=== PATIENT | male | born 1985 | race Caucasian/White ===

== ENCOUNTER 2017-12-29 11:32 | Observation (INO) | payer BC ==
[2017-12-29 13:27] LABS: Absolute Lymphocytes (CBC) 1.5 K/uL (0.7-4.9); Absolute Monocytes 0.9 K/uL (0.1-1.3); Absolute Neutrophil 5.5 K/uL (1.8-8.0); Basophils % 1.1 % (0-1.3); Eosinophils % 1.1 % (0-4.4); Hematocrit 46.6 % (39.6-49.0); Lymphocytes % 18.7 % (15.3-44.8); MCH 29.6 pg (27.0-35.0); MCV 91.2 fL (80-100); MPV 10.8 fL (7.6-11.3); Monocytes % 10.8 % (3.3-12.3); RBC Red Blood Cell Count 5.12 M/uL (4.33-5.43)
--- NOTE | 2017-12-29 13:34 | ER ---
Nurse's Notes [facility] Name: Joe Duncan Age: 32 yrs Sex: Male : 1985 Arrival Date: 12/29/2017 Time: 11:36 Bed 25 Private MD: Brandon Arellano T Diagnosis: Chest pain, unspecified;Essential (primary) hypertension Presentation: 12/29 11:43 Presenting complaint: Patient states: Tightness in chest with dizziness that started aj suddenly this AM. Transition of care: patient was not received from another setting of care. Onset of symptoms was December 29, 2017. Risk Assessment: Do you want to hurt yourself or someone else? Patient reports no desire to harm self or others. Initial Sepsis Screen: Does the patient meet any 2 criteria? No. Patient's initial sepsis screen is negative. Does the patient have a suspected source of infection? No. Patient's initial sepsis screen is negative. Care prior to arrival: Medication(s) given: ASA, 81 mg, x 1. 11:43 Method Of Arrival: Wheelchair aj 11:43 Acuity: PRADIP 3 aj Triage Assessment: 11:44 General: Appears in no apparent distress. comfortable, Behavior is calm, cooperative, aj appropriate for age. Pain: Complains of pain in chest. Neuro: Level of Consciousness is awake, alert, obeys commands, Oriented to person, place, time, situation, Appropriate for age. Cardiovascular: Reports chest pain, Capillary refill < 3 seconds in bilateral fingers Patient's skin is warm and dry. Respiratory: Airway is patent Respiratory effort is even, unlabored, Respiratory pattern is regular, symmetrical. Derm: Skin is intact, is healthy with good turgor, Skin is pink, warm \T\ dry. normal. Historical: - Allergies: 11:44 No Known Allergies; aj - Home Meds: 11:44 None [Active]; aj - PMHx: 11:44 None; aj - PSHx: 11:44 None; aj - Immunization history:: Adult Immunizations up to date. - Social history:: Smoking status: Patient uses tobacco products, chewing tobacco. - Ebola Screening: : Patient negative for fever greater than or equal to 101.5 degrees Fahrenheit, and additional compatible Ebola Virus Disease symptoms Patient denies exposure to infectious person Patient denies travel to an Ebola-affected area in the 21 days before illness onset No symptoms or risks identified at this time. - Family history:: not pertinent. Screenin:03 Abuse screen: Denies threats or abuse. Denies injuries from another. Nutritional iw screening: No deficits noted. Tuberculosis screening: No symptoms or risk factors identified. 14:29 Fall Risk None identified. tl3 Assessment: 13:01 General: Appears in no apparent distress. Behavior is calm, cooperative. Pain: iw Complains of pain in chest Pain radiates to left arm Pain currently is 0 out of 10 on a pain scale. Pain began 2 hours ago. Is continuous. Neuro: Level of Consciousness is awake, alert, obeys commands, Oriented to person, place, time, situation. Cardiovascular: Reports chest pain, shortness of breath, cp has resolved, pt is feeling better, more relaxed Capillary refill < 3 seconds in bilateral fingers Patient's skin is warm and dry. Respiratory: Respiratory effort is even, unlabored, Respiratory pattern is regular, symmetrical. GI: Abdomen is non-distended. Derm: Skin is pink, warm \T\ dry. normal. Musculoskeletal: Range of motion: intact in all extremities. 14:29 Reassessment: No changes from previously documented assessment. Patient and/or family tl3 updated on plan of care and expected duration. Pain level reassessed. Patient is alert, oriented x 3, equal unlabored respirations, skin warm/dry/pink. pt is resting quietly, hospitalist at bedside for assessment. 14:57 Reassessment: Patient appears in no apparent distress at this time. No changes from tl3 previously documented assessment. Patient and/or family updated on plan of care and expected duration. Pain level reassessed. Patient is alert, oriented x 3, equal unlabored respirations, skin warm/dry/pink. pt does not want to be admitted, MD notified awaiting. 16:20 Reassessment: Patient appears in no apparent distress at this time. No changes from tl3 previously documented assessment. Patient and/or family updated on plan of care and expected duration. Pain level reassessed. Patient is alert, oriented x 3, equal unlabored respirations, skin warm/dry/pink. pt has talked to his and to Dr Hutchins and has now decided to stay for his admission. Vital Signs: 11:44 BP 155 / 68; Pulse 81; Resp 16; Temp 98.8; Pulse Ox 100% on R/A; Weight 127.01 kg; aj Height 5 ft. 9 in. (175.26 cm); 14:29 BP 141 / 93; Pulse 72; Resp 18; Pulse Ox 99% ; tl3 15:52 BP 124 / 78; Pulse 64; Resp 16; Pulse Ox 99% on R/A; mt 16:20 BP 135 / 60; Pulse 69; Resp 18; Pulse Ox 98% ; tl3 16:38 BP 137 / 79; Pulse 61; Resp 18; Pulse Ox 99% on R/A; mt 11:44 Body Mass Index 41.35 (127.01 kg, 175.26 cm) aj ED Course: 11:36 Patient arrived in ED. mr 11:37 Brandon Arellano MD is Private Physician. mr 11:44 Triage completed. aj 11:44 Arm band placed on left wrist. Patient placed in waiting room. aj 11:46 EKG completed in triage. Results shown to MD. aj 13:02 Darren Hutchins MD is Attending Physician. bee 13:13 Initial lab(s) drawn, by ut, sent to lab. Missed attempt(s): 20 gauge in left mt antecubital area. 13:21 Katerine Finch, RN is Primary Nurse. tl3 13:23 X-ray completed. Portable x-ray completed in exam room. Patient tolerated procedure jb2 well. 13:23 XRAY Chest (1 view) In Process Unspecified. EDMS 13:31 Rhonda Caballero MD is Hospitalizing Provider. bee 14:29 Patient has correct armband on for positive identification. can intake worker on. Pulse tl3 ox on. NIBP on. 14:29 No provider procedures requiring assistance completed. Inserted saline lock: 20 gauge tl3 in right upper arm, using aseptic technique. Patient maintains SpO2 saturation greater than 95% on room air. 17:13 Patient admitted, IV remains in place. tl3 Administered Medications: 14:10 Drug: NS 0.9% 1000 ml Route: IV; Rate: 125 ml/hr; Site: right upper arm; tl3 17:14 Follow up: IV Status: Infusion continued upon admission tl3 14:10 Drug: Aspirin Chewable Tablet 324 mg Route: PO; tl3 16:22 Follow up: Response: No adverse reaction tl3 14:10 Drug: Lopressor (metoprolol TARTRATE) 50 mg Route: PO; tl3 16:22 Follow up: Response: No adverse reaction; Blood pressure is lowered tl3 14:10 Drug: Pepcid 20 mg Route: IVP; Site: right forearm; tl3 16:21 Follow up: Response: No adverse reaction tl3 17:10 Drug: Lovenox 1 mg/kg Route: Sub-Q; Site: abdomen; tl3 17:15 Follow up: Response: No adverse reaction tl3 Outcome: 13:33 Decision to Hospitalize by Provider. [facility] 17:13 Admitted to Tele accompanied by tech, via wheelchair, with chart, Report called to tl3 Lita Cummings RN 17:16 Condition: stable tl3 17:16 Patient left the ED. tl3 Signatures: Dispatcher [employer] Marion Wetzel RN RN aj Anderson, Corey, MD MD cha Rivera, Maria mr Charliekelly, Canelo jb2 Shanika Oates, Verónica Ruiz RN, mt, Tammy, RN RN tl3 Corrections: (The following items were deleted from the chart) 11:47 11:44 Arm band placed on left wrist. Patient placed in an exam room, [facility] 11:49 11:43 Care prior to arrival: None. [facility] 17:14 16:22 Lovenox 1 mg/kg Sub-Q in abdomen tl3 tl3
--- NOTE | 2017-12-29 13:34 | EDPHYS ---
Physician Documentation [facility] Name: Joe Duncan Age: 32 yrs Sex: Male : 1985 Arrival Date: 12/29/2017 Time: 11:36 Bed 25 Private MD: Brandon Arellano T ED Physician Darren Hutchins HPI: 12/29 13:29 This 32 yrs old Male presents to ER via Wheelchair with complaints of Chest bee Pain. 13:29 The patient or guardian reports chest pain that is located primarily in the substernal bee area. The pain radiates to. Associated signs and symptoms: The patient has no apparent associated signs or symptoms. The chest pain is described as a heaviness, a pressure, squeezing. Modifying factors: The symptoms are alleviated by nothing. the symptoms are aggravated by nothing. Severity of pain: At its worst the pain was moderate in the emergency department the pain has improved moderately. The patient has not experienced similar symptoms in the past. Historical: - Allergies: 11:44 No Known Allergies; aj - Home Meds: 11:44 None [Active]; aj - PMHx: 11:44 None; aj - PSHx: 11:44 None; aj - Immunization history:: Adult Immunizations up to date. - Social history:: Smoking status: Patient uses tobacco products, chewing tobacco. - Ebola Screening: : Patient negative for fever greater than or equal to 101.5 degrees Fahrenheit, and additional compatible Ebola Virus Disease symptoms Patient denies exposure to infectious person Patient denies travel to an Ebola-affected area in the 21 days before illness onset No symptoms or risks identified at this time. - Family history:: not pertinent. ROS: 13:29 Constitutional: Negative for fever, chills, and weight loss, Eyes: Negative for injury, bee pain, redness, and discharge, ENT: Negative for injury, pain, and discharge, Neck: Negative for injury, pain, and swelling, Respiratory: Negative for shortness of breath, cough, wheezing, and pleuritic chest pain, Abdomen/GI: Negative for abdominal pain, nausea, vomiting, diarrhea, and constipation, Back: Negative for injury and pain, : Negative for injury, bleeding, discharge, and swelling, MS/Extremity: Negative for injury and deformity, Skin: Negative for injury, rash, and discoloration, Neuro: Negative for headache, weakness, numbness, tingling, and seizure, Psych: Negative for depression, anxiety, suicide ideation, homicidal ideation, and hallucinations, Allergy/Immunology: Negative for hives, rash, and allergies, Endocrine: Negative for neck swelling, polydipsia, polyuria, polyphagia, and marked weight changes, Hematologic/Lymphatic: Negative for swollen nodes, abnormal bleeding, and unusual bruising. 13:29 Cardiovascular: Positive for chest pain, of the chest. Exam: 13:29 Constitutional: This is a well developed, well nourished patient who is awake, alert, bee and in no acute distress. Head/Face: Normocephalic, atraumatic. Eyes: Pupils equal round and reactive to light, extra-ocular motions intact. Lids and lashes normal. Conjunctiva and sclera are non-icteric and not injected. Cornea within normal limits. Periorbital areas with no swelling, redness, or edema. ENT: Nares patent. No nasal discharge, no septal abnormalities noted. Tympanic membranes are normal and external auditory canals are clear. Oropharynx with no redness, swelling, or masses, exudates, or evidence of obstruction, uvula midline. Mucous membranes moist. Neck: Trachea midline, no thyromegaly or masses palpated, and no cervical lymphadenopathy. Supple, full range of motion without nuchal rigidity, or vertebral point tenderness. No Meningismus. Chest/axilla: Normal chest wall appearance and motion. Nontender with no deformity. No lesions are appreciated. Cardiovascular: Regular rate and rhythm with a normal S1 and S2. No gallops, murmurs, or rubs. Normal PMI, no JVD. No pulse deficits. Respiratory: Lungs have equal breath sounds bilaterally, clear to auscultation and percussion. No rales, rhonchi or wheezes noted. No increased work of breathing, no retractions or nasal flaring. Abdomen/GI: Soft, non-tender, with normal bowel sounds. No distension or tympany. No guarding or rebound. No evidence of tenderness throughout. Back: No spinal tenderness. No costovertebral tenderness. Full range of motion. Male : Normal genitalia with no discharge or lesions. Skin: Warm, dry with normal turgor. Normal color with no rashes, no lesions, and no evidence of cellulitis. MS/ Extremity: Pulses equal, no cyanosis. Neurovascular intact. Full, normal range of motion. Neuro: Awake and alert, GCS 15, oriented to person, place, time, and situation. Cranial nerves II-XII grossly intact. Motor strength 5/5 in all extremities. Sensory grossly intact. Cerebellar exam normal. Normal gait. Psych: Awake, alert, with orientation to person, place and time. Behavior, mood, and affect are within normal limits. 15:12 Musculoskeletal/extremity: DVT Exam: No signs of deep vein thrombosis. no pain, no bee swelling, no tenderness, negative Homans' sign noted on exam, no appreciated bluish discoloration, no erythema, no increased warmth. Vital Signs: 11:44 BP 155 / 68; Pulse 81; Resp 16; Temp 98.8; Pulse Ox 100% on R/A; Weight 127.01 kg; aj Height 5 ft. 9 in. (175.26 cm); 14:29 BP 141 / 93; Pulse 72; Resp 18; Pulse Ox 99% ; tl3 15:52 BP 124 / 78; Pulse 64; Resp 16; Pulse Ox 99% on R/A; mt 16:20 BP 135 / 60; Pulse 69; Resp 18; Pulse Ox 98% ; tl3 16:38 BP 137 / 79; Pulse 61; Resp 18; Pulse Ox 99% on R/A; mt 11:44 Body Mass Index 41.35 (127.01 kg, 175.26 cm) aj MDM: 13:02 Patient medically screened. [facility] 15:11 Data reviewed: lab test result(s), EKG, radiologic studies, plain films. [facility] 12/29 13:04 Order name: Basic Metabolic Panel; Complete Time: 15: 12/29 13:04 Order name: CBC with Diff; Complete Time: 15: 12/29 13:04 Order name: Ckmb; Complete Time: 15: 12/29 13:04 Order name: CPK; Complete Time: 15: 12/29 13:04 Order name: LFT's; Complete Time: 15: 12/29 13:04 Order name: Magnesium; Complete Time: 15: 12/29 13:04 Order name: NT PRO-BNP; Complete Time: 15: 12/29 13:04 Order name: PT-INR; Complete Time: 15: 12/29 13:04 Order name: Ptt, Activated; Complete Time: 15:07 12/29 13:04 Order name: Troponin (emerg Dept Use Only); Complete Time: 15:07 12/29 13:04 Order name: XRAY Chest (1 view); Complete Time: 15:07 12/29 13:28 Order name: Lipase; Complete Time: 15:07 [facility] 12/29 13:04 Order name: EKG; Complete Time: 13:04 12/29 13:04 Order name: Cardiac monitoring; Complete Time: 13:14 12/29 13:04 Order name: EKG - Nurse/Tech; Complete Time: 13:14 12/29 13:04 Order name: Labs collected and sent; Complete Time: 13:14 12/29 13:04 Order name: O2 Per Protocol; Complete Time: 13:14 12/29 13:04 Order name: O2 Sat Monitoring; Complete Time: 13:14 12/29 13:36 Order name: CONS Physician Consult EDMS Administered Medications: 14:10 Drug: NS 0.9% 1000 ml Route: IV; Rate: 125 ml/hr; Site: right upper arm; tl3 17:14 Follow up: IV Status: Infusion continued upon admission tl3 14:10 Drug: Aspirin Chewable Tablet 324 mg Route: PO; tl3 16:22 Follow up: Response: No adverse reaction tl3 14:10 Drug: Lopressor (metoprolol TARTRATE) 50 mg Route: PO; tl3 16:22 Follow up: Response: No adverse reaction; Blood pressure is lowered tl3 14:10 Drug: Pepcid 20 mg Route: IVP; Site: right forearm; tl3 16:21 Follow up: Response: No adverse reaction tl3 17:10 Drug: Lovenox 1 mg/kg Route: Sub-Q; Site: abdomen; tl3 17:15 Follow up: Response: No adverse reaction tl3 Disposition: 12/29/17 13:33 Hospitalization ordered by Rhonda Caballero for Observation. Preliminary diagnosis are Chest pain, unspecified, Essential (primary) hypertension. - Bed requested for Telemetry/MedSurg (observation). - Status is Observation. tl3 - Condition is Stable. - Problem is new. - Symptoms have improved. UTI on Admission? No Signatures: Dispatcher [employer] EDMS Marion Dhaliwal, RN Darren Nichols MD MD cha Williams, Irene, RN RN iw Katerine Finch RN RN tl3 Corrections: (The following items were deleted from the chart) 17:16 13:33 Hospitalization Ordered by Rhonda Caballero MD for Observation. Preliminary diagnosis tl3 is Chest pain, unspecified; Essential (primary) hypertension. Bed requested for Telemetry/MedSurg (observation). Status is Observation. Condition is Stable. Problem is new. Symptoms have improved. UTI on Admission? No. bee
[2017-12-29 13:36] LABS: Protime INR 0.97
[2017-12-29 13:43] LABS: Albumin 4.3 g/dL (3.4-5.0); Bilirubin Direct 0.1 mg/dL (0-0.2); Bilirubin Total 0.6 mg/dL (0.2-1.0); CKMB Creatine Kinase MB 1.3 ng/mL (0.3-3.6); Magnesium 2.4 mg/dL (1.8-2.4); Potassium 4.1 mmol/L (3.5-5.1); Protein, Total 8.2 g/dL (6.4-8.2)
[2017-12-29] MEDS ORDERED: METOPROLOL TAR 50 MG TAB ONE (13:47)
[2017-12-29] MEDS ORDERED: ASPIRIN 81 MG CHEWABLE TABLET ONE (13:47)
[2017-12-29] MEDS ORDERED: ENOXAPARIN 40 MG/0.4 ML SQ ONE (13:48)
[2017-12-29] MEDS ORDERED: ENOXAPARIN 100 MG/ML SYR SQ ONE ×2 (13:48→13:53)
[2017-12-29] MEDS ORDERED: NA CHLORIDE 0.9% 1,000 ML ONE (13:48)
[2017-12-29] MEDS ORDERED: FAMOTIDINE 20 MG/2 ML VIAL IV ONE (13:48)
[2017-12-29] MEDS ORDERED: ENOXAPARIN 30 MG/0.3 ML SQ ONE (13:54)
--- NOTE | 2017-12-29 14:05 | RAD REPORT ---
EXAM DESCRIPTION: RAD - Chest Single View - 12/29/2017 1:23 pm CLINICAL HISTORY: Chest pain, chest tightness COMPARISON: None. TECHNIQUE: AP portable chest image was obtained . FINDINGS: Lungs are clear. Heart size is upper normal. Pulmonary vascular within normal limits. Trac hea is midline. No measurable pleural effusion and no pneumothorax. No gross bony abnormality seen. N o acute aortic findings suspected. IMPRESSION: No acute cardiopulmonary process.
--- NOTE | 2017-12-29 14:57 | P.CNS ---
Date of Consult: 12/29/17 Called to see 32-year-old male with history of hypertension hyperlipidemia and nicotine dependence who is noncompliant coming in with chest pain which has since resolved. Patient states he had some elevated blood pressure at home systolic 180s. Patient has not been taking his medications for the past year and stop taking his cholesterol medications as well. Patient currently is asymptomatic however he understands that given his risk factors of hypertension hyperlipidemia obesity strong family history of coronary artery disease he needs to stay in the hospital however wishes to sign out against medical advice. I counseled him regarding leaving the hospital against medical advice and the risks associated with leaving AMA including worsening chest pain NC or even . He voiced understanding and does not wish to stay in the hospital. [facility]. I informed his nurse that the patient is requesting a form to sign out AMA
--- NOTE | 2017-12-29 16:54 | EKG ---
Test Date: 2017-12-29 Test Time: 11:51:43 Balloon Pilot: HELLEN MEASUREMENT RESULTS: Intervals: Rate: 79 NH: 152 QRSD: 92 QT: 366 QTc: 419 Timbo: P: 59 NH: 152 QRS: 15 T: 19 INTERPRETIVE STATEMENTS: Normal sinus rhythm Minimal voltage criteria for LVH, may be normal variant Borderline ECG No previous ECG available for comparison Electronically Signed On 12-29-17 16:53:11 CDT by Ector Randle
[2017-12-29] MEDS ORDERED: MORPHINE 4 MG/ML SYR IV PRN (17:13)
[2017-12-29] MEDS ORDERED: ACETAMINOPHEN 500 MG TAB PO PRN (17:13)
[2017-12-29] MEDS ORDERED: ALPRAZOLAM 0.25 MG TABLET PO PRN (17:13)
[2017-12-29] MEDS ORDERED: ZOLPIDEM TARTRATE 5 MG TABLET PO PRN (17:13)
--- NOTE | 2017-12-29 17:13 | P.SSS ---
Patient History Date of Service: 12/30/17 Primary Care Provider: FERDINAND Reason for admission: CHEST PAIN History of Present Illness: Called to see 32-year-old male with history of hypertension hyperlipidemia and nicotine dependence who is noncompliant coming in with chest pain which has since resolved. Patient states he had some elevated blood pressure at home systolic 180s. Patient has not been taking his medications for the past year and stop taking his cholesterol medications as well. Patient currently is asymptomatic however he understands that given his risk factors of hypertension hyperlipidemia obesity strong family history of coronary artery disease he needs to stay in the hospital however wishes to sign out against medical advice. I counseled him regarding leaving the hospital against medical advice and the risks associated with leaving AMA including worsening chest pain MT or even . He voiced understanding and does not wish to stay in the hospital. He states he will go to the [place] tomorrow and get back on his blood pressure medications. I informed his nurse that the patient is requesting a form to sign out AMA ADDENDUM: PATIENT DECIDED TO STAY IN THE HOSPITAL and was admitted Allergies No Known Allergies Allergy (Verified 12/29/17 17:21) Home medications list reviewed: Yes Home Medications: Famotidine [Pepcid*] 1 tab PO DAILY 12/29/17 Fenofibrate Nanocrystallized [Fenofibrate] 145 mg PO DAILY #30 tablet 12/30/17 Lisinopril [Prinivil*] 10 mg PO DAILY #30 tab 12/30/17 Metoprolol Tartrate [Lopressor*] 25 mg PO BID #60 tab 12/30/17 - Past Medical/Surgical History Diabetic: No -: Hypertension -: Hyperlipidemia Past Surgical History: Patient denies surgical history - Family History Father -: Heart disease Notes: Uncle had coronary disease Brother -: Hypertension - Social History Smoking Status: Current every day smoker Smoking therapy provided: Yes Patient receptive to therapy: Yes Alcohol use: No CD- Drugs: No Place of Residence: Home Review of Systems 10-point ROS is otherwise unremarkable Cardiovascular: As per HPI Physical Examination - Vital Signs Temperature: 97.1 F Blood Pressure: 126/81 Pulse: 51 Respirations: 18 Pulse Ox (%): 99 - Physical Exam General: Alert, In no apparent distress, Oriented x3, Obese HEENT: Atraumatic, PERRLA, Mucous membr. moist/pink, EOMI, Sclerae nonicteric Neck: Supple, 2+ carotid pulse no bruit, No LAD, Without JVD or thyroid abnormality Respiratory: Clear to auscultation bilaterally, Normal air movement Cardiovascular: No edema, Normal pulses, Regular rate/rhythm, Normal S1 S2 Gastrointestinal: Normal bowel sounds, Soft and benign, Non-distended, No tenderness Musculoskeletal: No clubbing, No tenderness Integumentary: No rashes, No erythema Neurological: Normal gait, Normal speech, Normal strength at 5/5 x4 extr, Normal tone, Cranial nerves 3-12 intact, Normal affect - Studies Laboratory Data (last 24 hrs) 12/29/17 13:12: Lipase 60 L 12/29/17 13:12: PT 11.4, INR 0.97, APTT 28.1 12/29/17 13:12: WBC 8.1, Hgb 15.1, Hct 46.6, Plt Count 187 12/29/17 13:12: Sodium 140, Potassium 4.1, BUN 20 H, Creatinine 1.10, Glucose 99 , Magnesium 2.4, Total Bilirubin 0.6, AST 32, ALT 64, Alkaline Phosphatase 63 Imagings Data: Chest x-ray negative - Diagnosis (Problem(s)) (1) Chest pain Onset Date: 12/30/17 Status: Acute Qualifiers: Chest pain type: precordial pain Qualified Code(s): R07.2 - Precordial pain (2) Hypertension Onset Date: 12/30/17 Status: Acute Qualifiers: Hypertension type: essential hypertension Qualified Code(s): I10 - Essential (primary) hypertension (3) Hyperlipidemia Onset Date: 12/30/17 Status: Acute Qualifiers: Hyperlipidemia type: unspecified Qualified Code(s): E78.5 - Hyperlipidemia , unspecified (4) Nicotine dependence Onset Date: 12/30/17 Status: Acute Qualifiers: Nicotine product type: cigarettes Substance use status: uncomplicated Qualified Code(s): F17.210 - Nicotine dependence, cigarettes, uncomplicated (5) Noncompliance Onset Date: 12/30/17 Status: Acute Treatment Summary: Patient admitted for Chest pain. ACS ruled out. HTN was uncontrolled. Meds adjusted. Cardiology was consulted. His echo and treadmill stress test were negative. Patient was then asymptomatic. He did complain of some anxiety. He was cleared for DC from cardiology standpoint. No smoking! counseled regarding compliance. 12/30/16 PE: VSS, afebrile GEN: AAOx3 CV: S1, S2 no murmur RESP: CTA b/l GI: BS+, NT/ND EXT: no c/c/e NEURO non focal - Disposition Disposition: ROUTINE DISCHARGE Condition: GOOD Consultations: Dr. Bella cardiology Patient Discharge Instructions: f/up w PCP in 2-3 days. f/up w spring tester Dr. Bella in 2 weeks. Return to ER for worsening condition Diet: AHA Activity: Ad bo
[2017-12-29 17:22] VITALS: BMI 34.0
[2017-12-29] MEDS ORDERED: NITROGLYCERIN 0.4 MG/TAB SL PRN (17:35)
[2017-12-29] MEDS: ENOXAPARIN 40 MG/0.4 ML SQ SCH (17:41)
[2017-12-29] MEDS: FAMOTIDINE 20 MG TAB PO SCH (20:29)
[2017-12-29] MEDS: METOPROLOL TAR 25 MG TAB PO SCH (20:30)
[2017-12-29] MEDS ORDERED: ATORVASTATIN 40 MG TAB PO SCH (21:00)
[2017-12-30 04:16] LABS: Absolute Lymphocytes (CBC) 2.5 K/uL (0.7-4.9); Absolute Monocytes 0.8 K/uL (0.1-1.3); Basophils % 1.2 % (0-1.3); Hematocrit 46.2 % (39.6-49.0); Lymphocytes % 38.1 % (15.3-44.8); MCH 30.1 pg (27.0-35.0); MCV 91.1 fL (80-100); MPV 10.7 fL (7.6-11.3); Monocytes % 11.8 % (3.3-12.3); RBC Red Blood Cell Count 5.07 M/uL (4.33-5.43)
[2017-12-30 04:31] LABS: BUN Blood Urea Nitrogen 19 mg/dL (7-18); Bicarbonate 24 mmol/L (21-32); Glucose Level 103 mg/dL (74-106); HDL Cholesterol 29 mg/dL (40-60); LDL Cholesterol, Calculated ND (<130); Potassium 4.4 mmol/L (3.5-5.1); Sodium Level 139 mmol/L (136-145)
[2017-12-30 04:59] LABS: LDL, Direct 156 mg/dL (100-129)
[2017-12-30 08:19] VITALS: BP 126/81; TEMP 97.1
[2017-12-30 08:35] VITALS: O2SAT 98
[2017-12-30] MEDS: METOPROLOL TAR 25 MG TAB PO SCH (09:00)
[2017-12-30] MEDS ORDERED: LISINOPRIL 10 MG TAB PO SCH (09:00)
[2017-12-30] MEDS ORDERED: ASPIRIN EC 81 MG TAB PO SCH (09:00)
[2017-12-30] MEDS: ENOXAPARIN 40 MG/0.4 ML SQ SCH (09:39)
[2017-12-30] MEDS: FAMOTIDINE 20 MG TAB PO SCH (09:40)
--- NOTE | 2017-12-30 12:39 | ECHO ---
HEIGHT: 5 ft 9 in WEIGHT: 230 lb 0 oz DATE OF STUDY: 12/30/[address]: Rhonda Caballero MD 2-DIMENSIONAL: YES M.MODE: YES DOPPLER: YES COLOR FLOW: YES TDS: NO PORTABLE: NO DEFINITY: NO BUBBLE STUDY: NO DIAGNOSIS: CHEST PAIN CARDIAC HISTORY: CATHERIZATION: NO SURGERY: NO PROSTHETIC VALVE: NO PACEMAKER: NO MEASUREMENTS (cm) DIASTOLIC (NORMALS) SYSTOLIC (NORMALS) IVSd 1.0 (0.6-1.2) LA Diam 3.7 (1.9-4.0) LVEF 64% LVIDd 5.5 (3.5-5.7) LVIDs 3.5 (2.0-3.5) %FS 35% LVPWd 1.0 (0.6-1.2) Ao Diam 2.5 (2.0-3.7) 2 DIMENSIONAL ASSESSMENT: RIGHT ATRIUM: NORMAL LEFT ATRIUM: NORMAL RIGHT VENTRICLE: NORMAL LEFT VENTRICLE: NORMAL TRICUSPID VALVE: NORMAL MITRAL VALVE: NORMAL PULMONIC VALVE: NORMAL AORTIC VALVE: NORMAL PERICARDIAL EFFUSION: NONE AORTIC ROOT: NORMAL LEFT VENTRICULAR WALL MOTION: NORMAL DOPPLER/COLOR FLOW: NORMAL COMMENTS: NORMAL 2D ECHOCARDIOGRAM WITH DOPPLER. NO WALL MOTION ABNORMALITY. NO EFFUSION. TECHNOLOGIST: Gil CANNON
--- NOTE | 2017-12-30 13:08 | TREADMILL ---
70% H.R.: 132 85% H.R.: 161 90% H.R.: 170 100% H.R.: 189 DX: CHEST PAIN Date of Study: 12/30/2017 Ht: 5 9 Wt: 230 lb 0 oz Consulting Physician: TRISTAN MEDICATIONS: TYLENOL, XANAX, ASPIRIN, LIP[ITOR, LOVENOX, PEPCID, PRINIVAL, LOPRESSOR, NITROSTAT, AMBIEN HISTORY: 32 YEAR OLD MALE WITH COMPLAINTS OF CHEST PAIN. HISTORY OF PSORIASIS. PHYSICIAL EXAMINATION: RESTING B.P.: 119/84 RESTING H.R.: 75 RESTING EKG: NORMAL PROTOCOL: MARCI ROUTINE EXERCISE TIME: 8:20 MAXIMUM HEART RATE: 134 71 % OF PREDICTED B.P. AT PEAK STRESS: 151/74 H.R. AT 1 MINUTE POST EXERCISE: 106 IMPRESSION: MARCI ROUTINE STRESS TEST STOPPED DUE TO FATIGUE AND CHEST PAIN PER PROTOCOL. NO SUPRAVENTRICULAR TACHYCARDIA. NO VENTRICULAR TACHYCARDIA. NO PREMATURE VENTRICULAR COMPLEXES. CHEST PAIN FOUR OUT OF TEN ON PAIN SCALE INTERMITTEN SHARP PAIN WITH SHORTNESS OF BREATH. NEGATIVE EXERCISE TOLERANCE TEST. NO ST CHANGES.
--- NOTE | 2017-12-30 13:41 | P.PN ---
Subjective Date of Service: 12/30/17 Primary Care Provider: FERDINAND Chief Complaint: CHEST PAIN Subjective: No C/O voiced Review of Systems 10-point ROS is otherwise unremarkable Physical Examination - Vital Signs Temperature: 97.1 F Blood Pressure: 126/81 Pulse: 51 Respirations: 18 Pulse Ox (%): 99 - Physical Exam General: Alert, In no apparent distress HEENT: Atraumatic, PERRLA, EOMI Neck: Supple, JVD not distended Respiratory: Clear to auscultation bilaterally, Normal air movement Cardiovascular: Regular rate/rhythm, Normal S1 S2 Gastrointestinal: Normal bowel sounds, No tenderness Musculoskeletal: No tenderness Integumentary: No rashes Neurological: Normal speech, Normal tone, Normal affect Lymphatics: No axilla or inguinal lymphadenopathy - Studies Laboratory Data (last 24 hrs) 12/29/17 13:12: Lipase 60 L 12/29/17 13:12: Sodium 140, Potassium 4.1, BUN 20 H, Creatinine 1.10, Glucose 99 , Magnesium 2.4, Total Bilirubin 0.6, AST 32, ALT 64, Alkaline Phosphatase 63 Medications List Reviewed: Yes Assessment And Plan - Current Problems (Diagnosis) (1) Chest pain Onset Date: 12/30/17 Status: Acute Qualifiers: Chest pain type: precordial pain Qualified Code(s): R07.2 - Precordial pain (2) Hypertension Onset Date: 12/30/17 Status: Acute Qualifiers: Hypertension type: essential hypertension Qualified Code(s): I10 - Essential (primary) hypertension (3) Hyperlipidemia Onset Date: 12/30/17 Status: Acute Qualifiers: Hyperlipidemia type: unspecified Qualified Code(s): E78.5 - Hyperlipidemia , unspecified (4) Nicotine dependence Onset Date: 12/30/17 Status: Acute Qualifiers: Nicotine product type: cigarettes Substance use status: uncomplicated Qualified Code(s): F17.210 - Nicotine dependence, cigarettes, uncomplicated (5) Noncompliance Onset Date: 12/30/17 Status: Acute - Plan DC home Discharge Plan: Home
--- NOTE | 2017-12-31 10:53 | CON ---
Date of Consultation: 12/30/2017 The patient was admitted to Dr. Caballero's service on 12/29/2017. I saw the patient on 12/30/2017. Reason For Consultation: Chest pain. History Of Present Illness: Mr. Gauthier is a [id number]. He has a history of hypertension and dy slipidemia, buy has been noncompliant with therapy. He is supposed to take a blood pressure pill and a cholesterol pill, but he has not really had taking any. He admitted to smoking and drinking. He normally goes to the [facility] for his care, but has not been recently. He came in with a sharp st abbing sensation in the left chest with headache located with numbness in his arm. Denied any nausea , vomiting, diaphoresis, PND, orthopnea, pedal edema, palpitations, or syncope. By the time he came in, he was noted to have a normal EKG and chest x-ray as well as troponin and CPKs and MBs. Of note was his triglyceride was 593. His cholesterol was 237 with an LDL of 156. Allergies: NONE. Review of Systems: Negative. Social History: Positive for alcohol and tobacco abuse. Family History: Noncontributory. Medications: At home are none for now. Physical Examination: Vital Signs: Were stable. He was afebrile. HEENT: Negative. Neck: Supple without any bruit, lymphadenopathy, JVD, or thyromegaly. Chest: Clear to auscultation and percussion. Cardiac Exam: Revealed a regular rhythm and rate without any murmurs, gallops, or rubs. Abdomen: Benign. Extremities: Revealed no clubbing, cyanosis, or edema. Diagnostic Data: As stated earlier. Impression And Plan: Atypical chest pain, likely cardiac. The patient will have multiple risk facto rs including his dyslipidemia, hypertension, and family history of heart disease. I recommend that w e do an echocardiogram and a routine stress test since his EKG is normal. These are normal and he ca n go home, but he needs to be on antihypertensive medicine, not to suggest at least the fenofibrate a nd maybe a statin as well. He will be instructed without the use of alcohol and tobacco and complian ce. He needs to have a physician that he follows up with on a regular basis. SHER/EDISON Voice ID: [id number] Report ID: [id number]
== END 2017-12-30 13:11 | disposition home or self-care (01) ==
LOC: ER 11:32 → ERHOLD 13:34 → 4TH 17:02
PROVIDERS: ADMIT Family Medicine; ATTEND Family Medicine
DX: R07.9 Chest pain, unspecified (principal); E78.5 Hyperlipidemia, unspecified; I10 Essential (primary) hypertension; F17.210 Nicotine dependence, cigarettes, uncomplicated; Z91.14 Patient's other noncompliance with medication regimen; E66.9 Obesity, unspecified; Z68.34 Body mass index [BMI] 34.0-34.9, adult; Z82.49 Family history of ischemic heart disease and other diseases of the circulatory system
CPT/HCPCS: 36415; 71045; 80048; 80061; 80076; 82550; 82553; 83690; 83735; 83880; 84484; 85025; 85610; 85730; 93005; 93017; 93306; 94760; 96361; 96372; 96374; 99285; G0378; J1650; J7030

== ENCOUNTER 2020-01-05 10:22 | Emergency (ER) | payer BC, OTHER ==
[2020-01-05] MEDS ORDERED: HYDROCODONE/APAP 7.5/325 MG TAB ONE (11:19)
[2020-01-05 11:31] LABS: Absolute Lymphocytes (CBC) 1.2 K/uL (0.7-4.9); Hematocrit 45.8 % (39.6-49.0); Lymphocytes % 22.6 % (15.3-44.8); MPV 10.7 fL (7.6-11.3); RBC Red Blood Cell Count 5.01 M/uL (4.33-5.43)
[2020-01-05 11:47] LABS: ALT/SGPT 57 U/L (12-78); AST/SGOT 27 U/L (15-37); Alkaline Phosphatase 58 U/L (45-117); BUN Blood Urea Nitrogen 21 mg/dL (7-18); Bicarbonate 25 mmol/L (21-32); Bilirubin Direct < 0.1 mg/dL (0-0.2); Bilirubin Total 0.6 mg/dL (0.2-1.0); Glucose Level 112 mg/dL (74-106); Lipase 67 U/L (73-393); Potassium 4.4 mmol/L (3.5-5.1); Protein, Total 7.6 g/dL (6.4-8.2); Sodium Level 140 mmol/L (136-145)
--- NOTE | 2020-01-05 13:30 | RAD REPORT ---
EXAM DESCRIPTION: CT - Abdomen Pelvis W Contrast - 01/05/2020 1:04 pm CLINICAL HISTORY: ABD PAIN COMPARISON: <Comparisons> TECHNIQUE: Biphasic, helical CT imaging of the abdomen and pelvis was performed following 100 ml non -ionic IV contrast. No oral contrast. All CT scans are performed using dose optimization technique as appropriate and may include automated exposure control or mA/KV adjustment according to patient size. FINDINGS: No suspicious findings in the lung bases. Liver shows diffuse fatty infiltration with no focal liver lesion identified. Portal vein is normal. Spleen and pancreas show no suspicious findings. Gallbladder and biliary tree are also without suspic ious finding. Symmetric renal function is seen with no hydronephrosis or suspicious renal mass. Nonobstructing 10 m m calcification present lower pole on the right. No pyelonephritis or acute parenchymal process. No b ladder abnormalities. No adrenal abnormalities. No gastric dilatation or wall thickening. No dilated small bowel loop. Cardenas of the terminal ileum ar e mildly prominent. This is favored to be a peristalsis artifact rather than Crohn's or other inflamm atory process. The adjacent fat shows no edema or stranding. No appendicitis findings. No acute colon process seen. No free air, free fluid or inflammatory stranding. No hernia, mass or bulky lymphade nopathy. No suspicious bony findings. IMPRESSION: Contrast-enhanced CT abdomen and pelvis imaging shows no acute or suspicious finding. Mild prominence of the terminal ileum cardenas believed to be the affects of peristalsis rather than Still Pump Operator hn's or other inflammatory process. No history of inflammatory disease indicated. No acute process hilton spected. Diffuse fatty infiltration of the liver.
[2020-01-05 13:34] LABS: Urine Blood NEGATIVE (NEG); Urine Glucose NEGATIVE (NEG); Urine Protein NEGATIVE (NEG)
--- NOTE | 2020-01-05 13:43 | ER ---
Nurse's Notes [facility] Name: Joe Duncan Age: 34 yrs Sex: Male : 1985 Arrival Date: 01/05/2020 Time: 10:27 Bed 5 Private MD: Diagnosis: Hemorrhage of anus and rectum;Lower abdominal pain, unspecified;Calculus of kidney Presentation: 01/04 10:32 Chief complaint: Patient states: "I've been having this knot in my stomach, well I went ss to the ID ER yesterday. They did a CT scan and told me I have an 8 mm kidney stone and told me to follow up with urology today. But I'm going to have to wait until Wednesday and apparently you're not supposed to wait with a kidney stone that big." Pt c/o intermittent pain to R lower abd x 6 months. Coronavirus screen: Proceed with normal triage. Patient denies a cough. Patient denies shortness of breath or difficulty breathing. Patient denies measured and/or subjective temperature greater than 100.4F prior to today's visit. Patient denies travel on a cruise ship or to a country the [facility] currently lists as an affected area. Patient denies contact with known and/or suspected case of COVID-19. Ebola Screen: Patient denies exposure to infectious person. Patient denies travel to an Ebola-affected area in the 21 days before illness onset. Initial Sepsis Screen: Does the patient meet any 2 criteria? No. Patient's initial sepsis screen is negative. Does the patient have a suspected source of infection? No. Patient's initial sepsis screen is negative. Risk Assessment: Do you want to hurt yourself or someone else? Patient reports no desire to harm self or others. Note My called Dr. Hutchins and spoke with the ID and they said to go to the ER. Onset of symptoms was August 2019. 10:32 Method Of Arrival: Ambulatory ss 10:32 Acuity: PRADIP 3 ss Historical: - Allergies: 10:36 No Known Allergies; ss - PMHx: 10:36 Kidney stones; Hypertension; ss - PSHx: 10:36 L FA; ss - Immunization history:: Adult Immunizations up to date. - Social history:: Smoking status: Patient reports the use of cigarette tobacco products, denies chronic smoking, but will smoke occasionally, Patient/guardian denies using alcohol, street drugs, The patient lives with family. - Family history:: not pertinent. Screenin:00 Abuse screen: Denies threats or abuse. Nutritional screening: No deficits noted. em Tuberculosis screening: No symptoms or risk factors identified. Fall Risk None identified. Assessment: 11:00 General: Appears in no apparent distress. uncomfortable, Behavior is calm, cooperative, em appropriate for age, Denies fever. Pain: Complains of pain in right lower quadrant Pain currently is 4 out of 10 on a pain scale. Pain began 6 months ago. Neuro: Level of Consciousness is awake, alert, obeys commands, Oriented to person, place, time, situation, Appropriate for age. Cardiovascular: Capillary refill < 3 seconds Patient's skin is warm and dry. Respiratory: Airway is patent Respiratory effort is even, unlabored, Respiratory pattern is regular, symmetrical. GI: Abdomen is round non-distended, Bowel sounds present X 4 quads. Abd is soft X 4 quads Abdomen is tender to palpation in right lower quadrant Patient currently denies nausea, vomiting. : Denies burning with urination, pain. Derm: Musculoskeletal: Capillary refill < 3 seconds, Range of motion: intact in all extremities. 12:00 Reassessment: Patient appears in no apparent distress at this time. Patient and/or em family updated on plan of care and expected duration. Pain level reassessed. Patient is alert, oriented x 3, equal unlabored respirations, skin warm/dry/pink. 13:00 Reassessment: Patient appears in no apparent distress at this time. Patient and/or em family updated on plan of care and expected duration. Pain level reassessed. Patient is alert, oriented x 3, equal unlabored respirations, skin warm/dry/pink. Patient states feeling better. Vital Signs: 10:32 BP 118 / 70; Pulse 64; Resp 15; Temp 98.1(TE); Pulse Ox 99% on R/A; Weight 104.33 kg; ss Height 5 ft. 9 in. (175.26 cm); Pain 4/10; 13:00 BP 112 / 78; Pulse 78; Resp 18; Pulse Ox 99% on R/A; em 10:32 Body Mass Index 33.96 (104.33 kg, 175.26 cm) ED Course: 10:27 Patient arrived in ED. mr 10:35 Triage completed. 10:36 Arm band placed on right wrist. 10:37 González Smalls MD is Attending Physician. me2 10:38 Dustin Moore, RN is Primary Nurse. em 11:00 Patient has correct armband on for positive identification. Placed in gown. Bed in low em position. Call light in reach. Side rails up X2. 13:05 CT Abd/Pelvis - PO and IV Contrast In Process Unspecified. EDAZ 13:28 Urine collected: clean catch specimen, clear. [facility] 13:42 Gerald Coe MD is Referral Physician. ma 14:30 No provider procedures requiring assistance completed. IV discontinued, intact, em bleeding controlled, No redness/swelling at site. Pressure dressing applied. Administered Medications: 11:23 Drug: Metter (7.5 mg-325 mg) 1 tabs Route: PO; em Outcome: 13:43 Discharge ordered by . [facility] 14:30 Discharged to home ambulatory. em 14:30 Condition: good 14:30 Discharge instructions given to patient, Instructed on discharge instructions, follow up and referral plans. medication usage, Demonstrated understanding of instructions, follow-up care, medications, Prescriptions given X 1. 14:34 Patient left the ED. ph Signatures: Dispatcher [employer] [facility] Vanessa Hagan mr Dustin Moore, Radha Alford RN, RN RN ss Hall, Patricia, RN RN Leidy Connor [facility] González Smalls MD MD meHilario
--- NOTE | 2020-01-05 13:43 | EDPHYS ---
Physician Documentation [facility] Name: Joe Duncan Age: 34 yrs Sex: Male : 1985 Arrival Date: 01/05/2020 Time: 10:27 Bed 5 Private MD: ED Physician González Smalls HPI: 01/04 13:45 This 34 yrs old Male presents to ER via Ambulatory with complaints of ma2 Possible Kidney Stone. 13:45 The patient presents with abdominal pain. Onset: The symptoms/episode began/occurred ma2 gradually, 1 week(s) ago. Associated signs and symptoms: Pertinent negatives: anorexia, chest pain, dysuria, fever, vomiting. Severity of pain: At its worst the pain was moderate in the emergency department the pain has resolved. The patient has not experienced similar symptoms in the past. Historical: - Allergies: 10:36 No Known Allergies; ss - PMHx: 10:36 Kidney stones; Hypertension; ss - PSHx: 10:36 L FA; ss - Immunization history:: Adult Immunizations up to date. - Social history:: Smoking status: Patient reports the use of cigarette tobacco products, denies chronic smoking, but will smoke occasionally, Patient/guardian denies using alcohol, street drugs, The patient lives with family. - Family history:: not pertinent. ROS: 13:45 Constitutional: Negative for fever, chills, and weight loss. ma2 13:45 All other systems are negative. Exam: 13:45 Constitutional: This is a well developed, well nourished patient who is awake, alert, ma2 and in no acute distress. Head/Face: Normocephalic, atraumatic. Eyes: Pupils equal round and reactive to light, extra-ocular motions intact. Lids and lashes normal. Conjunctiva and sclera are non-icteric and not injected. Cornea within normal limits. Periorbital areas with no swelling, redness, or edema. ENT: Nares patent. No nasal discharge, no septal abnormalities noted. Tympanic membranes are normal and external auditory canals are clear. Oropharynx with no redness, swelling, or masses, exudates, or evidence of obstruction, uvula midline. Mucous membranes moist. Chest/axilla: Normal chest wall appearance and motion. Nontender with no deformity. No lesions are appreciated. Cardiovascular: Regular rate and rhythm with a normal S1 and S2. No gallops, murmurs, or rubs. Normal PMI, no JVD. No pulse deficits. Respiratory: Lungs have equal breath sounds bilaterally, clear to auscultation and percussion. No rales, rhonchi or wheezes noted. No increased work of breathing, no retractions or nasal flaring. Abdomen/GI: Soft, non-tender, with normal bowel sounds. No distension or tympany. No guarding or rebound. No evidence of tenderness throughout. MS/ Extremity: Pulses equal, no cyanosis. Neurovascular intact. Full, normal range of motion. Neuro: Awake and alert, GCS 15, oriented to person, place, time, and situation. Cranial nerves II-XII grossly intact. Motor strength 5/5 in all extremities. Sensory grossly intact. Cerebellar exam normal. Normal gait. Vital Signs: 10:32 BP 118 / 70; Pulse 64; Resp 15; Temp 98.1(TE); Pulse Ox 99% on R/A; Weight 104.33 kg; ss Height 5 ft. 9 in. (175.26 cm); Pain 4/10; 13:00 BP 112 / 78; Pulse 78; Resp 18; Pulse Ox 99% on R/A; em 10:32 Body Mass Index 33.96 (104.33 kg, 175.26 cm) ss MDM: 10:37 Patient medically screened. ma2 13:45 Differential diagnosis: gastritis, gastroesophageal reflux disease, Irritable bowel ma2 syndrome. Data reviewed: vital signs, nurses notes. Counseling: I had a detailed discussion with the patient and/or guardian regarding: the historical points, exam findings, and any diagnostic results supporting the discharge/admit diagnosis, the presence of at least one elevated blood pressure reading (>120/80) during this emergency department visit, the need for outpatient follow up. Response to treatment: the patient's symptoms have markedly improved after treatment. 01/04 11:07 Order name: BMP; Complete Time: 11:54 [facility] 01/04 11:07 Order name: CBC with Diff; Complete Time: 11:54 tx2 01/04 11:07 Order name: CT Abd/Pelvis - PO and IV Contrast; Complete Time: 13:42 tx2 01/04 11:07 Order name: Hepatic Function; Complete Time: 11:54 tx2 01/04 11:07 Order name: Lipase; Complete Time: 11:54 [facility] 01/04 13:29 Order name: Urine Dipstick--Ancillary (enter results); Complete Time: 13:42 [facility] 01/04 11:07 Order name: IV Saline Lock; Complete Time: 11:27 [facility] 01/04 11:07 Order name: Labs collected and sent; Complete Time: 11:27 [facility] 01/04 11:07 Order name: NPO; Complete Time: 11:28 [facility] 01/04 11:07 Order name: Urine Dipstick-Ancillary (obtain specimen); Complete Time: 13:28 [facility] Administered Medications: 11:23 Drug: Hastings (7.5 mg-325 mg) 1 tabs Route: PO; em Disposition: 01/05/20 13:43 Discharged to Home. Impression: Hemorrhage of anus and rectum, Lower abdominal pain, unspecified, Calculus of kidney. - Condition is Stable. - Discharge Instructions: Abdominal Pain, Adult, Bsep-ia-Yxxs, Colonoscopy, Irxy-rp-Rlok. - Prescriptions for Diclofenac Sodium 75 mg Oral Tablet Sustained Release - take 1 tablet by ORAL route 2 times per day; 30 tablet. - Medication Reconciliation Form, Thank You Letter, Antibiotic Education, Prescription Opioid Use form. - Follow up: Gerald Coe; When: Tomorrow; Reason: Continuance of care. - Problem is new. - Symptoms are unchanged. Signatures: Dispatcher [employer] EDDustin Chavez RN RN em Smirch, Shelby, RN RN ss Hall, Patricia, RN RN ph Alzahri, Mohammad, MD MD ma2 Corrections: (The following items were deleted from the chart) 13:46 13:43 01/05/2020 13:43 Discharged to Home. Impression: Hemorrhage of anus and rectum; ma2 Lower abdominal pain, unspecified; Calculus of kidney. Condition is Stable. Discharge Instructions: Abdominal Pain, Adult, Mrjf-hp-Rmot, Colonoscopy, Dbli-fz-Jemr. Prescriptions for Diclofenac Sodium 75 mg Oral Tablet Sustained Release - take 1 tablet by ORAL route 2 times per day; 30 tablet. and Forms are Medication Reconciliation Form, Thank You Letter, Antibiotic Education, Prescription Opioid Use. Follow up: Gerald Coe; When: Tomorrow; Reason: Continuance of care. ma2 14:34 13:46 01/05/2020 13:43 Discharged to Home. Impression: Hemorrhage of anus and rectum; ph Lower abdominal pain, unspecified; Calculus of kidney. Condition is Stable. Discharge Instructions: Abdominal Pain, Adult, Xswk-fi-Hrws, Colonoscopy, Ezfz-pc-Utkf. Prescriptions for Diclofenac Sodium 75 mg Oral Tablet Sustained Release - take 1 tablet by ORAL route 2 times per day; 30 tablet. and Forms are Medication Reconciliation Form, Thank You Letter, Antibiotic Education, Prescription Opioid Use. Follow up: Gerald Coe; When: Tomorrow; Reason: Continuance of care. Problem is new. Symptoms are unchanged. ma2
[2020-01-05 14:41] VITALS: BP 118/70; TEMP 98.1; O2SAT 99
== END 2020-01-05 14:34 | disposition home or self-care (01) ==
LOC: ER 10:22
DX: N20.0 Calculus of kidney (principal); Z87.442 Personal history of urinary calculi; K62.5 Hemorrhage of anus and rectum; F17.210 Nicotine dependence, cigarettes, uncomplicated
CPT/HCPCS: 85025; 80048; 36415; 80076; 81003; 83690; 74177; 99284; Q9967

== ENCOUNTER 2020-11-07 11:30 | Emergency (ER) | payer OTHER ==
--- NOTE | 2020-11-07 12:09 | RAD REPORT ---
EXAM DESCRIPTION: CT - Head Brain Wo Cont - 11/07/2020 12:04 pm CLINICAL HISTORY: head injury, loc, in n lobby Trauma, head injury COMPARISON: No comparisons TECHNIQUE: All CT scans are performed using dose optimization technique as appropriate and may inclu de automated exposure control or mA/KV adjustment according to patient size. FINDINGS: No intracranial hemorrhage, hydrocephalus or extra-axial fluid collection.No areas of brai n edema or evidence of midline shift. The paranasal sinuses and mastoids are clear. The calvarium is intact. IMPRESSION: No acute intracranial abnormality.
--- NOTE | 2020-11-07 12:13 | EDPHYS ---
Physician Documentation [facility] Name: Joe Duncan Age: 35 yrs Sex: Male : 1985 Arrival Date: 11/07/2020 Time: 11:[address] Private MD: Darren Finley HPI: 11/07 11:50 This 35 yrs old Male presents to ER via Unassigned with complaints of Head jmm Injury With LOC-Adult - Hit w/baseball. 11:50 The patient or guardian reports injury. Onset: The symptoms/episode began/occurred jmm acutely, yesterday. Associated signs and symptoms: Loss of consciousness: This patient experience a loss of consciousness, Pertinent positives: vomiting. The patient has experienced similar episodes in the past. Historical: - Allergies: 13:13 No Known Allergies; ap3 - Home Meds: 13:13 Unable to obtain [Active]; ap3 - PMHx: 13:13 Hypertension; Kidney stones; ap3 - Immunization history:: Adult Immunizations up to date. - Immunization history: Last tetanus immunization: - up to date. - Social history:: Smoking status: Patient denies any tobacco usage or history of. Patient/guardian denies using. ROS: 11:50 Constitutional: Negative for fever, chills, and weight loss, Cardiovascular: Negative jmm for chest pain, palpitations, and edema, Respiratory: Negative for shortness of breath, cough, wheezing, and pleuritic chest pain. 11:50 Abdomen/GI: Positive for vomiting. 11:50 Neuro: Positive for loss of consciousness. 11:50 All other systems are negative. Exam: 11:50 Constitutional: This is a well developed, well nourished patient who is awake, alert, jmm and in no acute distress. Eyes: EOMI, no conjunctival erythema appreciated ENT: Moist Mucus Membranes Neck: Trachea midline, Supple Chest/axilla: Normal chest wall appearance and motion. Cardiovascular: Regular rate and rhythm. No edema appreciated Respiratory: Normal respirations, no respiratory distress appreciated Abdomen/GI: Non distended, soft Back: Normal ROM Skin: General appearance color normal 11:50 MS/ Extremity: Moves all extremities, no obvious deformities appreciated, no edema noted to the lower extremities Neuro: Awake and alert, normal gait Psych: Behavior is normal, Mood is normal, Patient is cooperative and pleasant 11:50 Head/face: Noted is hematoma, that is mild, of the forehead. Vital Signs: 12:11 BP 138 / 94; Pulse 66; Resp 18; Pulse Ox 97% on R/A; ap3 Stacy Coma Score: 11:50 Eye Response: spontaneous(4). Verbal Response: oriented(5). Motor Response: obeys [facility] commands(6). Total: 15. 12:11 Eye Response: spontaneous(4). Verbal Response: oriented(5). Motor Response: obeys ap3 commands(6). Total: 15. Trauma Score (Adult): 12:11 Eye Response: spontaneous(1); Verbal Response: oriented(1); Motor Response: obeys ap3 commands(2); Systolic BP: > 89 mm Hg(4); Respiratory Rate: 10 to 29 per min(4); [place] Score: 15; Trauma Score: 12 MDM: 11:46 Patient medically screened. [facility] 12:10 Data reviewed: vital signs, nurses notes. Counseling: I had a detailed discussion with [facility] the patient and/or guardian regarding: the historical points, exam findings, and any diagnostic results supporting the discharge/admit diagnosis, radiology results, the need for outpatient follow up, to return to the emergency department if symptoms worsen or persist or if there are any questions or concerns that arise at home. ED course: CT negative. Patient advised to follow up with PCP. Patient otherwise given strict return precautions. Patient understood and agrees with the plan of care. . 11/07 11:47 Order name: CT Head Brain wo Cont [facility] 11/07 12:10 Order name: CT; Complete Time: 12:10 EDNV Administered Medications: No medications were administered Disposition: 11/08 07:24 Co-signature as Attending Physician, Darren Hutchins MD I agree with the assessment and bee plan of care. Disposition: 11/07/20 12:12 Discharged to Home. Impression: Concussion, Unspecified injury of head. - Condition is Stable. - Discharge Instructions: Concussion, Adult, Head Injury, Adult. - Medication Reconciliation Form, Thank You Letter, Antibiotic Education, Prescription Opioid Use form. - Follow up: Private Physician; When: 2 - 3 days; Reason: Recheck today's complaints, Continuance of care, Re-evaluation by your physician. Signatures: Dispatcher [employer] Darren Andrea MD MD cha Mickail, Joel, PA PA jmm Prokisch, Amanda, RN RN ap3 Corrections: (The following items were deleted from the chart) 11/07 13:15 12:12 11/07/2020 12:12 Discharged to Home. Impression: Concussion; Unspecified injury ap3 of head. Condition is Stable. Forms are Medication Reconciliation Form, Thank You Letter, Antibiotic Education, Prescription Opioid Use. Follow up: Private Physician; When: 2 - 3 days; Reason: Recheck today's complaints, Continuance of care, Re-evaluation by your physician. jose d
--- NOTE | 2020-11-07 12:13 | ER ---
Nurse's Notes [facility] Name: Joe Duncan Age: 35 yrs Sex: Male : 1985 Arrival Date: 11/07/2020 Time: 11:[address] Private MD: Diagnosis: Concussion;Unspecified injury of head Presentation: 11/07 11:59 Chief complaint: Patient states: patient states he was knocked out by a baseball ap3 yesterday 11/07/2019. States his LOC was for about 13 minutes, and when he woke up he was vomiting. He came to the ER today because [facility] be [facility]. Patient denies nausea at this time, but states he has a lingering headache. Coronavirus screen: At this time, the client does not indicate any symptoms associated with coronavirus-19. Ebola Screen: No symptoms or risks identified at this time. Initial Sepsis Screen: Does the patient meet any 2 criteria? No. Patient's initial sepsis screen is negative. Does the patient have a suspected source of infection? No. Patient's initial sepsis screen is negative. Risk Assessment: Do you want to hurt yourself or someone else? Patient reports no desire to harm self or others. Onset of symptoms was November 06, 2020. Mechanism of Injury: hit by baseball. 11:59 Method Of Arrival: Ambulatory ap3 11:59 Acuity: PRADIP 3 ap3 12:07 Care prior to arrival: None. Trauma event details: Injury occurred in the [address], Injury occurred: at home. Injury occurred: November 06, 2020. Historical: - Allergies: 13:13 No Known Allergies; ap3 - Home Meds: 13:13 Unable to obtain [Active]; ap3 - PMHx: 13:13 Hypertension; Kidney stones; ap3 - Immunization history:: Adult Immunizations up to date. - Immunization history: Last tetanus immunization: - up to date. - Social history:: Smoking status: Patient denies any tobacco usage or history of. Patient/guardian denies using. Screenin:04 Abuse screen: Denies threats or abuse. Nutritional screening: No deficits noted. ap3 Tuberculosis screening: No symptoms or risk factors identified. Fall Risk None identified. Primary Survey: 12:04 NO uncontrolled hemorrhage observed. A: The patient is alert. Airway: patent. ap3 Breathing/Chest: Respiratory pattern: regular, Respiratory effort: unlabored. Circulation: Skin color: pink, Skin temperature: warm, dry. Disability Alert. 12:13 Reassessment Breathing/Chest Respiratory pattern Regular Respiratory effort Unlabored ap3 Circulation Color [place] Temperature Warm Disability Alert. 12:14 Exposure/Environment: There is no evidence of uncontrolled external bleeding. No ap3 obvious injuries are noted at this time. Assessment: 12:01 General: Appears in no apparent distress. comfortable, Behavior is calm, cooperative, ap3 appropriate for age. Pain: Complains of pain in head Pain began 1 day ago. Neuro: Level of Consciousness is awake, alert, obeys commands, Oriented to person, place, time, situation, Gait is steady, Speech is normal. Cardiovascular: Capillary refill < 3 seconds. Respiratory: Airway is patent Respiratory effort is even, unlabored, Respiratory pattern is regular, symmetrical. GI: Reports patient states vomiting when he woke up from LOC yesterday, but denies current nausea/vomiting. : No signs and/or symptoms were reported regarding the genitourinary system. EENT: No signs and/or symptoms were reported regarding the EENT system. Derm: No signs and/or symptoms reported regarding the dermatologic system. Vital Signs: 12:11 BP 138 / 94; Pulse 66; Resp 18; Pulse Ox 97% on R/A; ap3 Stacy Coma Score: 11:50 Eye Response: spontaneous(4). Verbal Response: oriented(5). Motor Response: obeys jmm commands(6). Total: 15. 12:11 Eye Response: spontaneous(4). Verbal Response: oriented(5). Motor Response: obeys ap3 commands(6). Total: 15. Trauma Score (Adult): 12:11 Eye Response: spontaneous(1); Verbal Response: oriented(1); Motor Response: obeys ap3 commands(2); Systolic BP: > 89 mm Hg(4); Respiratory Rate: 10 to 29 per min(4); Stacy Score: 15; Trauma Score: 12 ED Course: 11:31 Patient arrived in ED. am2 11:33 Sylvain Sanders PA is PHCP. jmm 11:34 Darren Hutchins MD is Attending Physician. [facility] 11:58 Prokisch, Marion, RN is Primary Nurse. ap3 12:01 Triage completed. ap3 12:06 Patient has correct armband on for positive identification. Call light in reach. Side ap3 rails up X 1. Pulse ox on. NIBP on. Door closed. 12:13 Patient maintains SpO2 saturation greater than 95% on room air. ap3 13:12 No provider procedures requiring assistance completed. Patient did not have IV access ap3 during this emergency room visit. 13:14 Patient none. ap3 13:14 Thermoregulation: warm blanket given to patient. ap3 Administered Medications: No medications were administered Outcome: 12:12 Discharge ordered by . jose d 13:12 Discharged to home ambulatory. ap3 13:12 Condition: good 13:12 Discharge instructions given to patient, Instructed on discharge instructions, follow up and referral plans. Demonstrated understanding of instructions, follow-up care. 13:14 Patient's length of stay was not longer than 2 hours. ap3 13:15 Patient left the ED. ap3 Signatures: Sylvain Sanders PA PA jmm Moreno, Amanda am2 Marion Pandey, RN RN ap3
[2020-11-07 13:20] VITALS: BP 138/94; O2SAT 97
== END 2020-11-07 13:15 | disposition home or self-care (01) ==
LOC: ER 11:30
DX: S06.0X9A Concussion with loss of consciousness of unspecified duration, initial encounter (principal); W21.03XA Struck by baseball, initial encounter; I10 Essential (primary) hypertension
CPT/HCPCS: 70450; 99284

== ENCOUNTER 2021-02-24 11:23 | Emergency (ER) | payer OTHER ==
[2021-02-24] MEDS ORDERED: ACETAMINOPHEN 500 MG TAB ONE (13:03)
[2021-02-24 14:11] LABS: SARS-COV-2 RT PCR POSITIVE (NEGATIVE)
[2021-02-24] MEDS ORDERED: CASIRIVIMAB/IMDEVIMAB 10 ML VIAL ONE (14:59)
[2021-02-24] MEDS ORDERED: NA CHLORIDE 0.9% 100 ML ONE (14:59)
[2021-02-24] MEDS ORDERED: NA CHLORIDE 0.9% 0 ML ONE (14:59)
--- NOTE | 2021-02-24 16:12 | ER ---
Nurse's Notes [facility] Name: Joe Duncan Age: 36 yrs Sex: Male : 1985 Arrival Date: 02/24/2021 Time: 11:29 Bed DIS2 Private MD: Diagnosis: Coronavirus infection, unspecified Presentation: 02/24 12:36 Chief complaint: Patient states: Fever x 1 day, Body aches x 4 days. Coronavirus kg screen: Client denies travel out of the [place] in the last 14 days. At this time, unable to obtain information related to travel outside the [place] Ebola Screen: Patient negative for fever greater than or equal to 101.5 degrees Fahrenheit, and additional compatible Ebola Virus Disease symptoms Patient denies exposure to infectious person. Patient denies travel to an Ebola-affected area in the 21 days before illness onset. Initial Sepsis Screen: Does the patient meet any 2 criteria? No. Patient's initial sepsis screen is negative. Does the patient have a suspected source of infection? No. Patient's initial sepsis screen is negative. Risk Assessment: Do you want to hurt yourself or someone else? Patient reports no desire to harm self or others. Onset of symptoms was February 20, 2021. 12:36 Method Of Arrival: Ambulatory kg 12:36 Acuity: PRADIP 4 kg Triage Assessment: 12:40 General: Appears in no apparent distress. Behavior is calm, cooperative, appropriate kg for age, quiet. Pain: Complains of pain in back and abdomen. Respiratory: Reports shortness of breath cough that is pain with cough pain with respiration Onset: The symptoms/episode began/occurred gradually, the patient has mild shortness of breath. Historical: - Allergies: 12:38 No Known Allergies; kg - PMHx: 12:38 Hypertension; Kidney stones; Hypercholesterolemia; kg - PSHx: 12:38 Left arm sx; kg - Immunization history:: Adult Immunizations not up to date, Client reports having NOT received the Covid vaccine. - Social history:: Smoking status: Patient denies any tobacco usage or history of. Patient uses alcohol, occasionally. Screenin:42 Abuse screen: Denies threats or abuse. Denies injuries from another. Nutritional kg screening: No deficits noted. Tuberculosis screening: No symptoms or risk factors identified. Fall Risk None identified. Assessment: 13:13 General: Appears uncomfortable, Behavior is calm, cooperative, Reports feeling ill for ss > 3 days, fever x 1 day. Neuro: Level of Consciousness is awake, alert, obeys commands, Oriented to person, place, time, situation. Cardiovascular: Capillary refill < 3 seconds is brisk in bilateral fingers. Respiratory: Airway is patent Respiratory effort is even, unlabored, Respiratory pattern is regular, symmetrical, Breath sounds are clear bilaterally. GI: No signs and/or symptoms were reported involving the gastrointestinal system. EENT: Oral mucosa is moist. Derm: Skin is intact, is healthy with good turgor, Skin is dry, Skin is pink, warm \T\ dry. normal. Musculoskeletal: Circulation, motion, and sensation intact. Range of motion: intact in all extremities, Swelling absent. 14:30 Reassessment: Patient appears in no apparent distress at this time. No changes from ss previously documented assessment. Patient and/or family updated on plan of care and expected duration. Pain level reassessed. 15:30 Reassessment: Patient appears in no apparent distress at this time. No changes from ss previously documented assessment. Patient is alert, oriented x 3, equal unlabored respirations, skin warm/dry/pink. 16:37 Reassessment: Patient appears in no apparent distress at this time. Patient and/or ss family updated on plan of care and expected duration. Pain level reassessed. Patient is alert, oriented x 3, equal unlabored respirations, skin warm/dry/pink. Reassessment: Regeneron infusion complete. Awaiting 1 hour observation period prior to discharge. Respiratory: Airway is patent Respiratory effort is even, unlabored, Respiratory pattern is regular, symmetrical. Vital Signs: 12:36 Pulse 109; Resp 20; Temp 101.6; Pulse Ox 100% on R/A; Weight 108.86 kg (R); Height 5 kg ft. 9 in. (175.26 cm); Pain 10/10; 14:52 BP 135 / 85; Pulse 86; Resp 18; Temp 99.1(O); Pulse Ox 96% on R/A; mh5 15:41 BP 144 / 78; Pulse 76; Resp 18; Temp 98.7(O); Pulse Ox 99% on R/A; mh5 17:36 BP 143 / 81; Pulse 87; Resp 18; Temp 98.5(T); Pulse Ox 96% on R/A; mt 12:36 Body Mass Index 35.44 (108.86 kg, 175.26 cm) kg ED Course: 11:29 Patient arrived in ED. mr 11:44 Radha Millan FNP-C is PHCP. kb 11:44 Mark Hall MD is Attending Physician. kb 12:38 Triage completed. kg 12:40 Arm band placed on right wrist. kg 12:42 Patient has correct armband on for positive identification. kg 12:42 No provider procedures requiring assistance completed. kg 13:31 Radha Ibanez, JESSICA is Primary Nurse. ss 14:30 Chest Pa And Lat (2 Views) XRAY In Process Unspecified. EDMS 14:56 Inserted saline lock: 22 gauge in left hand, using aseptic technique. 5 18:00 IV discontinued, intact, bleeding controlled, No redness/swelling at site. Pressure ss dressing applied. Administered Medications: 13:00 Drug: Tylenol 1000 mg Route: PO; ss 14:59 Follow up: Response: No adverse reaction; Temperature is decreased ss 15:02 Drug: NS 0.9% 1000 ml Route: IV; Rate: 1000 ml; Site: left hand; ss 16:00 Follow up: IV Status: Completed infusion; IV Intake: 1000ml ss 15:32 Drug: REGEN-COV Dose Pack 120 mg/mL-120 mg/mL (EUA) 1 application Route: IV; Rate: ss calculated rate; Site: left hand; 16:30 Follow up: IV Status: Completed infusion ss Intake: 16:00 IV: 1000ml; Total: 1000ml. ss Outcome: 16:12 Discharge ordered by . kb 16:37 Condition: good ss 16:37 Discharge instructions given to patient, Instructed on discharge instructions, follow up and referral plans. medication usage, Demonstrated understanding of instructions, follow-up care. 18:00 Discharged to home ambulatory. ss 18:00 Patient left the ED. ss Signatures: Dispatcher [employer] EDMS Radha Millan FNP-C FNP-Christy CoyleaVanessa mr Radha Ibanez, RN RN Ramila Kc [facility] Verónica Silva [place] Praveena Jaramillo RN RN kg
--- NOTE | 2021-02-24 16:12 | EDPHYS ---
Physician Documentation [facility] Name: Joe Duncan Age: 36 yrs Sex: Male : 1985 Arrival Date: 02/24/2021 Time: 11:29 Bed DIS2 Private MD: ED Physician Mark Hall HPI: 02/24 16:11 This 36 yrs old Male presents to ER via Ambulatory with complaints of kb Shortness Of Breath, Body aches. 16:11 The patient or guardian reports difficulty breathing, flu symptoms, low-grade fever, kb myalgias. Onset: The symptoms/episode began/occurred 2 day(s) ago. Severity of symptoms: At their worst the symptoms were moderate, in the emergency department the symptoms are unchanged. Modifying factors: The symptoms are alleviated by nothing, the symptoms are aggravated by nothing. Associated signs and symptoms: Pertinent positives: fever, Pertinent negatives: chest pain, diarrhea, ear ache, nausea, rhinorrhea, sore throat, vomiting. The patient has not experienced similar symptoms in the past. The patient has not recently seen a physician. Historical: - Allergies: 12:38 No Known Allergies; kg - PMHx: 12:38 Hypertension; Kidney stones; Hypercholesterolemia; kg - PSHx: 12:38 Left arm sx; kg - Immunization history:: Adult Immunizations not up to date, Client reports having NOT received the Covid vaccine. - Social history:: Smoking status: Patient denies any tobacco usage or history of. Patient uses alcohol, occasionally. ROS: 16:09 Cardiovascular: Negative for chest pain, palpitations, and edema. kb 16:09 Constitutional: Positive for body aches, chills, fatigue, fever, malaise. 16:09 Respiratory: Positive for cough, shortness of breath, Negative for dyspnea on exertion, hemoptysis, orthopnea, pleurisy, sputum production, wheezing. 16:09 All other systems are negative. Exam: 16:11 Constitutional: This is a well developed, well nourished patient who is awake, alert, kb and in no acute distress. Head/Face: Normocephalic, atraumatic. ENT: Moist Mucous membranes Cardiovascular: Regular rate and rhythm with a normal S1 and S2. No gallops, murmurs, or rubs. No pulse deficits. Respiratory: Respirations even and unlabored. No increased work of breathing, no retractions or nasal flaring. Skin: Warm, dry with normal turgor. Normal color. MS/ Extremity: Pulses equal, no cyanosis. Neurovascular intact. Full, normal range of motion. Neuro: Awake and alert, GCS 15, oriented to person, place, time, and situation. Moves all extremities. Normal gait. Psych: Awake, alert, with orientation to person, place and time. Behavior, mood, and affect are within normal limits. Vital Signs: 12:36 Pulse 109; Resp 20; Temp 101.6; Pulse Ox 100% on R/A; Weight 108.86 kg (R); Height 5 kg ft. 9 in. (175.26 cm); Pain 10/10; 14:52 BP 135 / 85; Pulse 86; Resp 18; Temp 99.1(O); Pulse Ox 96% on R/A; mh5 15:41 BP 144 / 78; Pulse 76; Resp 18; Temp 98.7(O); Pulse Ox 99% on R/A; mh5 17:36 BP 143 / 81; Pulse 87; Resp 18; Temp 98.5(T); Pulse Ox 96% on R/A; mt 12:36 Body Mass Index 35.44 (108.86 kg, 175.26 cm) kg MDM: 12:51 Patient medically screened. kb 15:35 Data reviewed: vital signs, nurses notes. Data interpreted: Pulse oximetry: on room air kb is 96 %. Interpretation: normal. Counseling: I had a detailed discussion with the patient and/or guardian regarding: the historical points, exam findings, and any diagnostic results supporting the discharge/admit diagnosis, lab results, radiology results, the need for outpatient follow up, a family practitioner, to return to the emergency department if symptoms worsen or persist or if there are any questions or concerns that arise at home. 02/24 12:39 Order name: Flu kb 02/24 12:39 Order name: Chest Pa And Lat (2 Views) XRAY kb 02/24 14:12 Order name: COVID-19/FLU A+B; Complete Time: 14:18 EDMS 02/24 14:11 Order name: Vital Signs; Complete Time: 14:59 kb 02/24 14:20 Order name: IV Start; Complete Time: 14:59 kb Administered Medications: 13:00 Drug: Tylenol 1000 mg Route: PO; ss 14:59 Follow up: Response: No adverse reaction; Temperature is decreased ss 15:02 Drug: NS 0.9% 1000 ml Route: IV; Rate: 1000 ml; Site: left hand; ss 16:00 Follow up: IV Status: Completed infusion; IV Intake: 1000ml ss 15:32 Drug: REGEN-COV Dose Pack 120 mg/mL-120 mg/mL (EUA) 1 application Route: IV; Rate: ss calculated rate; Site: left hand; 16:30 Follow up: IV Status: Completed infusion ss Disposition: 18:47 Co-signature as Attending Physician, Mark Hall MD I agree with the assessment and rn plan of care. Attestation: The patient's history, exam findings, diagnostics, and a summary of any interventions or procedures was reviewed in detail with Radha ROBLEDO. Disposition Summary: 02/24/21 16:12 Discharge Ordered Location: Home kb Condition: Stable kb Diagnosis - Coronavirus infection, unspecified kb Followup: kb - With: Emergency Department - When: As needed - Reason: Worsening of condition Followup: kb - With: Private Physician - When: 2 - 3 days - Reason: Recheck today's complaints, Continuance of care, Re-evaluation by your physician Discharge Instructions: - Discharge Summary Sheet kb - Viral Respiratory Infection, [id number] kb - COVID-19 kb Forms: - Medication Reconciliation Form kb - Thank You Letter kb - Antibiotic Education kb - Prescription Opioid Use kb Signatures: Dispatcher [employer] EDRadha Corbin FNP-C FNP-Mark Peters MD MD rn Smirch, Shelby, RN RN ss Graham, Kristen, RN RN kg Corrections: (The following items were deleted from the chart) 13:00 11:44 CORONAVIRUS+MRANGELES.BRZ ordered. EDNM EDMS
[2021-02-24 18:21] VITALS: BP 143/81; TEMP 98.5; O2SAT 96
--- NOTE | 2021-02-25 08:07 | RAD REPORT ---
EXAM DESCRIPTION: RAD - Chest Pa And Lat (2 Views) - 02/24/2021 10:36 pm CLINICAL HISTORY: DYSPNEA Prolonged imaging system malfunction precluded earlier reporting. COMPARISON: January 2020 TECHNIQUE: Frontal and lateral views of the chest were obtained. FINDINGS: The lungs are normal volume with no dense mass or consolidations seen. No failure or volum e overload findings. Heart size is prominent but not clearly different from comparison. Patient has a few ill-defined interstitial and alveolar opacities in the lateral mid lower aspect of each lung field. Interval change is very subtle and may be technical in nature rather than pneumonia . Patient has COVID testing status is unknown at the time of this dictation. No pleural effusion or pneumothorax seen. No acute bony finding noted. No aortic abnormality. IMPRESSION: Chest is not significantly different from the 1-year-old comparison exam. There is some ill-defined opacification in the lateral aspect of each middle lower lung field. Early pneumonia is not entirely excluded and correlation is needed with clinical presentation.
== END 2021-02-24 18:00 | disposition home or self-care (01) ==
LOC: ER 11:23
DX: U07.1 COVID-19 (principal); I10 Essential (primary) hypertension
CPT/HCPCS: 96365; 0240U; 71046; 99284; J7030

== ENCOUNTER 2021-06-26 13:05 | Emergency (ER) | payer OTHER ==
[2021-06-26 15:26] LABS: SARS-COV-2 RT PCR POSITIVE (NEGATIVE)
--- NOTE | 2021-06-26 15:38 | ER ---
Nurse's Notes [facility] Name: Joe Duncan Age: 36 yrs Sex: Male : 1985 Arrival Date: 06/26/2021 Time: 13:20 Bed Waiting Private MD: Brandon Arellano T Diagnosis: Coronavirus infection, unspecified Presentation: 06/26 14:14 Chief complaint: Patient states: Fever and body aches that began this morning. ss Coronavirus screen: Client presents with at least one sign or symptom that may indicate coronavirus-19. Standard/surgical mask placed on the client. Ebola Screen: Patient denies exposure to infectious person. Patient denies travel to an Ebola-affected area in the 21 days before illness onset. Initial Sepsis Screen: Does the patient meet any 2 criteria? No. Patient's initial sepsis screen is negative. Does the patient have a suspected source of infection? No. Patient's initial sepsis screen is negative. Risk Assessment: Do you want to hurt yourself or someone else? Patient reports no desire to harm self or others. Onset of symptoms was June 26, 2021. 14:14 Method Of Arrival: Ambulatory ss 14:14 Acuity: PRADIP 4 ss Historical: - Allergies: 14:14 No Known Allergies; ss - PMHx: 14:14 Hypercholesterolemia; Hypertension; Kidney stones; ss - PSHx: 14:14 Left arm sx; ss - Immunization history:: Client reports having NOT received the Covid vaccine. - Social history:: Smoking status: Patient denies any tobacco usage or history of. Screenin:43 Abuse screen: Denies threats or abuse. Denies injuries from another. Nutritional ss screening: No deficits noted. Tuberculosis screening: Never had TB. Fall Risk None identified. Assessment: 14:14 General: Appears in no apparent distress. comfortable, Behavior is calm, cooperative, ss Reports feeling ill for 12-24 hours. Pain: Complains of pain in generalized body aches Pain currently is 5 out of 10 on a pain scale. Neuro: Level of Consciousness is awake, alert, obeys commands, Oriented to person, place, time, situation. Respiratory: Airway is patent Respiratory effort is even, unlabored, Respiratory pattern is regular, symmetrical. Derm: Skin is intact, is healthy with good turgor, Skin is pink, warm \T\ dry. normal. 15:43 Reassessment: Patient appears in no apparent distress at this time. No changes from ss previously documented assessment. Patient and/or family updated on plan of care and expected duration. Pain level reassessed. Patient is alert, oriented x 3, equal unlabored respirations, skin warm/dry/pink. Vital Signs: 14:14 BP 144 / 98; Pulse 88; Resp 17; Temp 99.1(TE); Pulse Ox 99% on R/A; Weight 108.86 kg; ss Height 5 ft. 9 in. (175.26 cm); Pain 5/10; 14:14 Body Mass Index 35.44 (108.86 kg, 175.26 cm) ss ED Course: 13:20 Patient arrived in ED. mr 13:20 Brandon Arellano MD is Private Physician. mr 14:14 Triage completed. ss 14:14 Arm band placed on left wrist. ss 14:16 Radha Millan FNP-C is [facility]. kb 14:16 Theo Hancock MD is Attending Physician. kb 15:43 Radha Ibanez, JESSICA is Primary Nurse. ss 15:43 Patient has correct armband on for positive identification. Bed in low position. Call ss light in reach. 15:43 No provider procedures requiring assistance completed. Patient did not have IV access ss during this emergency room visit. Administered Medications: No medications were administered Outcome: 15:37 Discharge ordered by . kb 15:43 Discharged to home ambulatory. ss 15:43 Condition: good 15:43 Discharge instructions given to patient, Instructed on discharge instructions, follow up and referral plans. Demonstrated understanding of instructions, follow-up care. 15:44 Patient left the ED. ss Signatures: Radha Millan FNP-C FNP-Christy Vanessa Hagan mr Radha Ibanez, RN RN ss
--- NOTE | 2021-06-26 15:38 | EDPHYS ---
Physician Documentation [facility] [place], [place] Name: Joe Duncan Age: 36 yrs Sex: Male : 1985 Arrival Date: 06/26/2021 Time: 13:20 Bed Waiting Private MD: Brandon Arellano T ED Physician Theo Hancock HPI: 06/26 15:15 This 36 yrs old Male presents to ER via Ambulatory with complaints of Fever, Body aches.kb 15:15 The patient or guardian reports flu symptoms, low-grade fever, myalgias. Onset: The kb symptoms/episode began/occurred last night. Severity of symptoms: At their worst the symptoms were moderate, in the emergency department the symptoms are unchanged. Modifying factors: The symptoms are alleviated by nothing, the symptoms are aggravated by nothing. Associated signs and symptoms: Pertinent positives: fever, rhinorrhea, Pertinent negatives: chest pain, diarrhea, ear ache, nausea, sore throat, vomiting. The patient has not experienced similar symptoms in the past. The patient has not recently seen a physician. Pt reports he had a runny nose and congestion last night then woke up with fever and bodyaches. . Historical: - Allergies: 14:14 No Known Allergies; ss - PMHx: 14:14 Hypercholesterolemia; Hypertension; Kidney stones; ss - PSHx: 14:14 Left arm sx; ss - Immunization history:: Client reports having NOT received the Covid vaccine. - Social history:: Smoking status: Patient denies any tobacco usage or history of. ROS: 15:14 Respiratory: Negative for shortness of breath, cough, wheezing, and pleuritic chest kb pain. 15:14 Constitutional: Positive for body aches, fever, malaise. 15:14 ENT: Positive for rhinorrhea. 15:14 All other systems are negative. Exam: 15:15 Constitutional: This is a well developed, well nourished patient who is awake, alert, kb and in no acute distress. Head/Face: Normocephalic, atraumatic. ENT: Moist Mucous membranes Cardiovascular: Regular rate and rhythm with a normal S1 and S2. No gallops, murmurs, or rubs. No pulse deficits. Respiratory: Respirations even and unlabored. No increased work of breathing. Talking in full sentences Skin: Warm, dry with normal turgor. Normal color. MS/ Extremity: Pulses equal, no cyanosis. Neurovascular intact. Full, normal range of motion. Neuro: Awake and alert, GCS 15, oriented to person, place, time, and situation. Moves all extremities. Normal gait. Psych: Awake, alert, with orientation to person, place and time. Behavior, mood, and affect are within normal limits. Vital Signs: 14:14 BP 144 / 98; Pulse 88; Resp 17; Temp 99.1(TE); Pulse Ox 99% on R/A; Weight 108.86 kg; ss Height 5 ft. 9 in. (175.26 cm); Pain 5/10; 14:14 Body Mass Index 35.44 (108.86 kg, 175.26 cm) ss MDM: 14:16 Patient medically screened. kb 15:14 Data reviewed: vital signs, nurses notes. Data interpreted: Pulse oximetry: on room air kb is 99 %. Interpretation: normal. 15:32 Counseling: I had a detailed discussion with the patient and/or guardian regarding: the kb historical points, exam findings, and any diagnostic results supporting the discharge/admit diagnosis, lab results, the need for outpatient follow up, a family practitioner, to return to the emergency department if symptoms worsen or persist or if there are any questions or concerns that arise at home. 06/26 14:16 Order name: COVID-19/FLU A+B (Document "Date of Onset" if Symptomatic) 06/26 14:17 Order name: COVID-19/FLU A+B; Complete Time: 15:31 EDMS Administered Medications: No medications were administered Disposition: 17:05 Co-signature as Attending Physician, Theo Hancock MD I agree with the assessment and kdr plan of care. Disposition Summary: 06/26/21 15:37 Discharge Ordered Location: Home kb Condition: Stable kb Diagnosis - Coronavirus infection, unspecified kb Followup: kb - With: Emergency Department - When: As needed - Reason: Worsening of condition Followup: kb - With: Private Physician - When: 2 - 3 days - Reason: Recheck today's complaints, Continuance of care, Re-evaluation by your physician Discharge Instructions: - Discharge Summary Sheet kb - Viral Respiratory Infection, [id number] kb - COVID-19 kb Forms: - Medication Reconciliation Form kb - Thank You Letter kb - Antibiotic Education kb - Prescription Opioid Use kb Signatures: Dispatcher [employer] Radha Velazquez, [employer]C [employer]-Ckb Theo Hancock MD MD kdr Smirch, Shelby, RN RN ss
[2021-06-26 15:51] VITALS: BP 144/98; TEMP 99.1; O2SAT 99
== END 2021-06-26 15:44 | disposition home or self-care (01) ==
LOC: ER 13:05
DX: U07.1 COVID-19 (principal); I10 Essential (primary) hypertension
CPT/HCPCS: 0240U; 99281

== ENCOUNTER 2021-08-22 07:32 | Day surgery (SDC) | payer BC ==
[2021-08-22] MEDS ORDERED: CEFAZOLIN/SWI 2gm 2 GM/20 ML SYR ONE (08:29)
[2021-08-22] MEDS ORDERED: Ringers Lactate 1,000 ML IV ONE (08:29)
[2021-08-22] MEDS: BUPIVACAINE 0.25% PF 10 ML VIAL ONE ×2 (09:12→10:07)
[2021-08-22] MEDS ORDERED: propofoL 200 MG/20 ML VIAL IV ONE (09:41)
[2021-08-22] MEDS ORDERED: MIDAZOLAM HCL 2 MG/2 ML INJ ONE (09:41)
[2021-08-22] MEDS ORDERED: LIDOCAINE 1% MPF 5 ML VIAL ONE (09:41)
[2021-08-22] MEDS ORDERED: FENTANYL CITR 100 MCG/2 ML ONE (09:41)
[2021-08-22] MEDS ORDERED: KETOROLAC 30 MG/ML INJ ONE (10:04)
[2021-08-22] MEDS ORDERED: dexAMETHasone 10 MG/ML VIAL ONE (10:04)
[2021-08-22] MEDS ORDERED: ONDANSETRON 4 MG/2 ML VIAL ONE (10:10)
--- NOTE | 2021-08-22 10:16 | P.OP ---
Preoperative diagnosis: RIGHT neck Mass Postoperative diagnosis: RIGHT Neck Mass Primary procedure: Excision of RIGHT Neck Mass Anesthesia: GETA + Local Estimated blood loss: <5cc Specimen: Sebaceous Cyst Findings: 2cm round sebaceous cyst Complications: None Transferred to: Recovery Room Condition: Good
[2021-08-22 11:12] VITALS: BP 103/57; TEMP 98.6; O2SAT 100
[2021-08-22] MEDS ORDERED: CODEINE 30MG/APAP 300MG TAB PO ONE (11:29)
[2021-08-22] MEDS ORDERED: CODEINE 30MG/APAP 300MG TAB ONE (11:36)
--- NOTE | 2021-08-22 22:28 | OP ---
Date of Procedure: 08/22/2021 Surgeon: Maxx Galvan MD, Preoperative Diagnosis: Right neck mass. Postoperative Diagnosis: Right neck mass. Procedure: Excision/excisional biopsy of right neck mass. Anesthesia: General endotracheal plus local with 0.25% Marcaine. Estimated Blood Loss: Less than 5 mL. Specimen: Sebaceous appearing epidermal inclusion cyst of the right neck area, approximately 2 cm in size, round. Complications: None. Disposition: The patient transferred to recovery room in good condition. Procedure In Detail: After informed consent was obtained, the patient was brought to the operating r oom and prepped and draped in the usual sterile fashion. After adequate anesthesia was achieved, an elliptical incision was made approximately 2 cm overlying the area in the right trapezius musculature with a firm mass overlying this. The elliptical incision was taken down using a 15 blade down to hilton bcutaneous tissues. Electrocautery was used to dissect down circumferentially around a subcutaneous mass which is into the fat plane, up to the muscle plane, but not invading the muscle. This appeared to be sebaceous in its entirety. I circumferentially removed the mass using electrocautery and afte r completely resecting it with the capsule intact, I sent it off for pathologic examination. I then irrigated the area. Hemostasis was achieved with electrocautery. I then closed the defect using a 2 -0 nylon suture in an interrupted fashion and a sterile dressing was placed over that. The patient tolerated the procedure without any complication, transferred to PACU in good condition. All counts were correct at the end of the case. EDIN/EDISON Voice ID: [id number] Report ID: [id number]
== END 2021-08-22 11:57 | disposition home or self-care (01) ==
LOC: OR 07:32
PROVIDERS: ATTEND Surgery
PROC: 0JB40ZZ Excision of Right Neck Subcutaneous Tissue and Fascia, Open Approach (ICD-10-PCS; principal; 2021-08-22 09:30)
DX: L72.0 Epidermal cyst (principal)
CPT/HCPCS: 88304; 11422; J2704; J2250; J3010; J1100; J0690; J7120; J2405

== ENCOUNTER 2022-06-07 18:11 | Emergency (ER) | payer BC, OTHER ==
--- OUTSIDE RECORDS SUMMARY | 2022-06-07 18:15 | XMS REPORT | Continuity of Care Document ---
:1985 Author Organization [facility] t Address [address] [place] [address] Dr[address] [place] [id number] Care Team Providers Name Role Phone LETICIA_Elvie Attending Clinician Unavailable Olivia Grissom Attending Clinician [phone] CHRISTIAN Admitting Clinician Unavailable Payers Payer Name Policy Type Policy Number Effective Date Expiration Date S bib[place] [id number] 2020 00:00:00 [place] Problems Condition Condition Condition Status Onset Resolution Last Treating Co mments Source Name Details Category Date Date Treatment Clinician Date Impaired Impaired Problem Active [facility] y glucose Glucose 6 [facility] tolerance Tolerance 00:00: ty [facility] Liver Liver Problem Active [place] enzymes Enzymes 6 [facility] abnormal Abnormal 00:00: ty [facility] Pain of Pain of Problem Active [place] right Right 2-23 [facility] shoulder Shoulder 00:00: ty joint Joint 00 [facility] Hyperlipid Hyperlipid Problem Active S weeny emia emia 1-05 [facility] 00:00: ty 00 [facility] Obstructiv Obstructiv Problem Active S weeny e sleep e Sleep 1-03 [facility] apnea Apnea 00:00: ty syndrome Syndrome 00 [facility] Essential Essential Problem Active Swe suad hypertensi Hypertensi 1-03 Co mmuni on on 00:00: ty 00 [facility] Hematochez Hematochez Problem Active S weeny ia ia 1-03 [facility] 00:00: ty [facility] Epidermoid Epidermoid Problem Active S weeny cyst of Cyst of 1 [facility] skin Skin 00:00: ty 00 [facility] Chest wall Chest Wall Problem Active S weeny pain Pain 07-07 [facility]i 00:00: ty [facility] Right Right Problem Active [place] [facility] Quadrant [facility] ty pain Pain 00 [facility] Long-term Long-term Problem Active [facility] suad [facility]07 [facility] Therapy [facility]: ty [facility] Pain in Pain in Problem Active [place] left foot Left Foot 07-07 Comm uni 00:00: ty [facility] Allergies, Adverse Reactions, Alerts This patient has no known allergies or adverse reactions. Social History Smoking Status Start Date Stop Date Source Light Tobacco Smoker [facility] Medications Ordered Filled Start Stop Current Ordering Indication Dosage Frequency Signature Comments Components Source Medication Medication Date Date Medication? Clinician (SIG) Name Name amoxicillin amoxicillin No 1 Q12H amoxicilli [place] [phone] n 875 [facility] mg-potassiu mg-potassiu mg-potassi ty m m [email or web address] clavulanate clavulanate clavulanat l 125 mg 125 mg e 125 mg [facility] tablet Take tablet Take tablet 1 tablet 1 tablet Take 1 every 12 every 12 tablet hours by hours by every 12 oral route oral route hours by with meals. with meals. oral route with meals. cyclobenzap cyclobenzap No cyclobenza [place] rine 10 mg rine 10 mg sven 10 Communi tablet TAKE tablet TAKE mg tablet ty 1 TABLET 3 1 TABLET 3 TAKE 1 H ospita TIMES A DAY TIMES A DAY TABLET 3 l BY ORAL BY ORAL TIMES A Clinic s ROUTE ROUTE DAY BY NEEDED. NEEDED. ORAL ROUTE NEEDED. diclofenac diclofenac No diclofenac [place] 3 % topical 3 % topical 3 % C ommuni gel gel topical ty gel [facility] diflorasone diflorasone No diflorason [place] 0.05 % 0.05 % e 0.05 % Communi topical topical topical ty ointment ointment ointment [facility] GaviLyte-G GaviLyte-G No GaviLyte-G [place] 236 236 236 [facility]i gram-22.74 gram-22.74 gram-22.74 ty gram-6.74 gram-6.74 gram-6.74 [facility] gram-5.86 gram-5.86 gram-5.86 l gram oral gram oral gram oral Clinics solution solution solution TAKE TAKE TAKE DIRECTED DIRECTED DIRECTED lidocaine 5 lidocaine 5 No lidocaine [place] % topical % topical 5 % Commu ni ointment ointment topical ty ointment [facility] lisinopril lisinopril No lisinopril [place] 10 mg 10 mg 10 mg Communi tablet tablet tablet ty [facility] lisinopril lisinopril No lisinopril [place] 20 mg 20 mg 20 mg Communi tablet TAKE tablet TAKE tablet ty 1 TABLET BY 1 TABLET BY TAKE 1 [facility] MOUTH EVERY MOUTH EVERY TABLET BY l DAY DAY MOUTH Clinics EVERY DAY Lofena 25 Lofena 25 No Lofena 25 [facility] mg tablet mg tablet mg tablet Communi ty [facility] methylpredn methylpredn No methylpred [place] isolone 4 isolone 4 nisolone 4 Communi mg tablets mg tablets mg tablets ty in a dose in a dose in a dose [facility] pack pack pack [facility] metoprolol metoprolol No metoprolol [place] succinate succinate succinate Communi ER 50 mg ER 50 mg ER 50 mg ty tablet,exte tablet,exte tablet,ext [facility] nded nded ended l release 24 release 24 release 24 Clinics hr TAKE 1 hr TAKE 1 hr TAKE 1 TABLET BY TABLET BY TABLET BY ORAL ROUTE ORAL ROUTE ORAL ROUTE EVERY DAY EVERY DAY EVERY DAY mupirocin 2 mupirocin 2 No mupirocin [place] % topical % topical 2 % Commu ni ointment ointment topical ty ointment [facility] naproxen naproxen No naproxen [facility] suad 500 mg 500 mg 500 mg Communi tablet Take tablet Take tablet ty 1 tablet 1 tablet Take 1 Hospi ta twice a day twice a day tablet l by oral by oral twice a Clinic s route. route. day by oral route. ondansetron ondansetron No ondansetro [place] 8 mg 8 mg n 8 mg Communi disintegrat disintegrat disintegra ty ing tablet ing tablet ting Hos rox PLACE 1 PLACE 1 tablet l TABLET BY TABLET BY PLACE 1 Cl inics TRANSLINGUA TRANSLINGUA TABLET BY L ROUTE L ROUTE TRANSLINGU TWICE A DAY TWICE A DAY AL ROUTE TWICE A DAY tramadol 50 tramadol 50 No tramadol [place] mg tablet mg tablet 50 mg Comm uni TAKE 1 TAKE 1 tablet ty TABLET BY TABLET BY TAKE 1 Hos rox MOUTH EVERY MOUTH EVERY TABLET BY l 6 HOURS 6 HOURS MOUTH Clinics EVERY 6 HOURS diflorasone diflorasone No diflorason [place] 0.05 % 0.05 % e 0.05 % Communi topical topical topical ty ointment ointment ointment [facility] lidocaine 5 lidocaine 5 No lidocaine [place] % topical % topical 5 % Commu ni ointment ointment topical ty ointment [facility] lisinopril lisinopril No lisinopril [place] 10 mg 10 mg 10 mg Communi tablet tablet tablet ty [facility] metoprolol metoprolol No metoprolol [place] succinate succinate succinate Communi ER 50 mg ER 50 mg ER 50 mg ty tablet,exte tablet,exte tablet,ext Hospita nded nded ended l release 24 release 24 release 24 Clinics hr TAKE 1 hr TAKE 1 hr TAKE 1 TABLET BY TABLET BY TABLET BY ORAL ROUTE ORAL ROUTE ORAL ROUTE EVERY DAY EVERY DAY EVERY DAY mupirocin 2 mupirocin 2 No mupirocin [place] % topical % topical 2 % Commu ni ointment ointment topical ty ointment [facility] naproxen naproxen No naproxen [facility] suad 500 mg 500 mg 500 mg [facility]i tablet Take tablet Take tablet ty 1 tablet 1 tablet Take 1 Hospi ta twice a day twice a day tablet l by oral by oral twice a Clinic s route. route. day by oral route. ondansetron ondansetron No ondansetro [place] 8 mg 8 mg n 8 mg Communi disintegrat disintegrat disintegra ty ing tablet ing tablet ting Hos rox PLACE 1 PLACE 1 tablet l TABLET [facility] TABLET BY L ROUTE L ROUTE TRANSLINGU TWICE A DAY TWICE A DAY AL ROUTE TWICE A DAY lisinopril lisinopril No lisinopril [place] 10 mg 10 mg 10 mg [facility]i tablet TAKE tablet TAKE tablet ty 1 TABLET BY 1 TABLET BY TAKE 1 Hospita ORAL ROUTE ORAL ROUTE TABLET BY l EVERY DAY EVERY DAY ORAL ROUTE Clinics EVERY DAY metoprolol metoprolol No metoprolol [place] succinate succinate succinate Communi ER 50 mg ER 50 mg ER 50 mg ty tablet,exte tablet,exte tablet,ext Hospita nded nded ended l release 24 release 24 release 24 Clinics hr TAKE 1 hr TAKE 1 hr TAKE 1 TABLET BY TABLET BY TABLET BY ORAL ROUTE ORAL ROUTE ORAL ROUTE EVERY DAY EVERY DAY EVERY DAY rosuvastati rosuvastati No 1 Q1D rosuvastat [place] n 10 mg n 10 mg in 10 mg Commu ni tablet Take tablet Take tablet ty 1 tablet 1 tablet Take 1 Hospi ta every day every day tablet l by oral by oral every day Clin ics route. route. by oral route. cyclobenzap cyclobenzap No 1 TID cyclobenza [place] rine 10 mg rine 10 mg sven 10 Communi tablet Take tablet Take mg tablet ty 1 tablet 3 1 tablet 3 Take 1 H ospita times a day times a day tablet 3 l by oral by oral times a Clinic s route as route as day by needed. needed. oral route as needed. lisinopril lisinopril No 1 Q1D lisinopril [place] 20 mg 20 mg 20 mg Communi tablet Take tablet Take tablet ty 1 tablet 1 tablet Take 1 Hospi ta every day every day tablet l by oral by oral every day Clin ics route. route. by oral route. metoprolol metoprolol No metoprolol [place] succinate succinate succinate Communi ER 50 mg ER 50 mg ER 50 mg ty tablet,exte tablet,exte tablet,ext Hospita nded nded ended l release 24 release 24 release 24 Clinics hr TAKE 1 hr TAKE 1 hr TAKE 1 TABLET BY TABLET BY TABLET BY ORAL ROUTE ORAL ROUTE ORAL ROUTE EVERY DAY EVERY DAY EVERY DAY Vital Signs Vital Name Observation Time Observation Value Comments Source BP Diastolic 2022-03-10 00:00:00 82 mm[Hg] [facility] BP Systolic 2022-03-10 00:00:00 138 mm[Hg] [facility] Body Weight 2022-03-10 00:00:00 4060.8 [oz_av] [facility] BP Diastolic 2021-12-11 00:00:00 88 mm[Hg] [facility] BP Systolic 2021-12-11 00:00:00 128 mm[Hg] [facility] Body Weight 2021-12-11 00:00:00 0 [oz_av] [facility] BP Diastolic 2021-08-27 00:00:00 100 mm[Hg] [facility] BP Systolic 2021-08-27 00:00:00 140 mm[Hg] [facility] Body Weight 2021-08-27 00:00:00 4153.6 [oz_av] [facility] BP Diastolic 2021-07-07 00:00:00 82 mm[Hg] [facility] BP Systolic 2021-07-07 00:00:00 122 mm[Hg] [facility] Body Weight 2021-07-07 00:00:00 3948.8 [oz_av] [facility] Procedures Procedure Date / Time Performed Performing Clinician Sourc e Endoscopy 2021-12-08 00:00:00 [facility] Colonoscopy 2021-12-08 00:00:00 [facility] US, abdomen 2021-08-11 00:00:00 [facility] XR, chest, 2 view 2021-07-07 00:00:00 [facility] XR, foot, 3 or more 2021-07-07 00:00:00 [facility] Plan of Care Planned Activity Planned Date Details Comments Source Diagnostic Test 2021-12-11 HbA1c (hemoglobin [facility] Pending 00:00:00 A1c), blood [code Hospital C linics = HbA1c (hemoglobin A1c), blood] Diagnostic Test 2021-12-11 CMP, serum or [place] Comm artesia Pending 00:00:00 plasma [code = Hospital Clin ics CMP, serum or plasma] Encounters Start End Encounter Admission Attending Care Care Encounter Source Date/Time Date/Time Type Type Clinicians Facility Department ID 2022-03-10 2022-03-10 Outpatient KEFFER_A [facility] [id number] [place] 00:00:00 00:00:00 [id number] [facility] 2022-03-10 2022-03-10 Olivia Martinez [facility] [place] - [place] [id number] [place] 00:00:00 00:00:00 Carly Grissom MD: [address] [facility] [address], COMM[facility]ITY [address], [facility], [address] LETICIA , Ph. 2022-03-10 2022-03-10 Outpatient Olivia Grissom [facility] [id number] 00:00:00 00:00:00 Michelle [id number] 2021-12-11 2021-12-11 Outpatient LETICIA_A [facility] 2021 [place] 11:02:00 11:02:00 0609 Commun i ty Hospita l Clinics 2021-12-11 2021-12-11 Outpatient Olivia Grissom [facility] [id number] 00:00:00 00:00:00 Michelle [id number] 2021-12-11 2021-12-11 Olivia Martinez [facility] [place] [id number] [place] 00:00:00 00:00:00 Carly Grissom MD: [address] [facility] [address], [facility] [address], [place], [place] CL[place], [address] LETICIA , Ph. 2021-12-07 2021-12-07 Outpatient KEFFER_A [facility] 2021 [place] 12:49:00 12:49:00 0605 Commun i ty Hospita l Clinics 2021-08-27 2021-08-27 Outpatient LETICIA_A [facility] 2021 [place] 03:46:00 03:46:00 0223 Commun i ty Hospita l Clinics 2021-08-27 2021-08-27 Outpatient Olivia Grissom [facility] [id number] 00:00:00 00:00:00 Michelle [id number] 2021-08-27 2021-08-27 Olivia Martinez [facility] [place] - [place] 00:00:00 00:00:00 Carly Grissom MD: [address] [facility] [address], [facility] [address], [facility], [place] CLINIC, [address] LETICIA , Ph. 2021-07-18 2021-07-18 Outpatient LETICIA_A [facility] 2021 [place] 06:46:00 06:46:00 0201 Commun i ty Hospita l Clinics 2021-07-09 2021-07-09 Outpatient LETICIA_A [facility] 2021 [place] 03:46:00 03:46:00 0105 Commun i ty Hospita l Clinics 2021-07-07 2021-07-07 Outpatient LETICIA_Elvie [facility] 2021 [place] 05:08:00 05:08:00 0103 Commun i ty Hospita l Clinics 2021-07-07 2021-07-07 Olivia Martinez [facility] [place] 00:00:00 00:00:00 Carly Grissom MD: [address] [facility] [place] [facility] [address], [facility] l [address], [facility], [facility], [address] LETICIA , Ph. 2021-07-07 2021-07-07 Outpatient Olivia Grissom [facility] [id number] 00:00:00 00:00:00 Michelle [id number] 2021-07-04 2021-07-04 Outpatient LETICIA_Elvie [facility] 2020 [place] 09:50:00 09:50:00 1231 Commun i ty Hospita l Clinics Results Test Description Test Time Test Comments Results Result Comments Source CBC W Auto Differential panel - Blood 2021-08-06 00:00:00 Test Item Value Reference Range Interpretation Comme nts Leukocytes [#/volume] in Blood by Automated count (test 5.7 x10e3/u L 3.4-10.8 code = 6690-2) Erythrocytes [#/volume] in Blood by Automated count 5.28 x10e6/uL 4 .14-5.80 (test code = 789-8) Hemoglobin [Mass/volume] in Blood (test code = 718-7) 15.1 g/dL 13.0-17.7 Hematocrit [Volume Fraction] of Blood by Automated count 45.6 % 37.5-51.0 (test code = 4544-3) Erythrocyte mean corpuscular volume [Entitic volume] by 86 fL 79-97 Automated count (test code = 787-2) Erythrocyte mean corpuscular hemoglobin [Entitic mass] 28.6 pg 26.6-33.0 by Automated count (test code = 785-6) Erythrocyte mean corpuscular hemoglobin concentration 33.1 g/dL 31.5-35.7 [Mass/volume] by Automated count (test code = 786-4) Erythrocyte distribution width [Ratio] by Automated 12.6 % 11 .6-15.4 count (test code = 788-0) Platelets [#/volume] in Blood by Automated count (test 168 x10e3/uL 150-450 code = 777-3) Neutrophils/100 leukocytes in Blood by Automated count 60 % not estab. (test code = 770-8) Lymphocytes/100 leukocytes in Blood by Automated count 26 % not estab. (test code = 736-9) Monocytes/100 leukocytes in Blood by Automated count 11 % n ot estab. (test code = 5905-5) Eosinophils/100 leukocytes in Blood by Automated count 2 % not estab. (test code = 713-8) Basophils/100 leukocytes in Blood by Automated count 1 % n ot estab. (test code = 706-2) immature cells (test code = immature cells) quality improvement consultant Neutrophils [#/volume] in Blood by Automated count (test 3.4 x10e3/ uL 1.4-7.0 code = 751-8) Lymphocytes [#/volume] in Blood by Automated count (test 1.5 x10e3/ uL 0.7-3.1 code = 731-0) Monocytes [#/volume] in Blood by Automated count (test 0.6 x10e3/uL 0.1-0.9 code = 742-7) Eosinophils [#/volume] in Blood by Automated count (test 0.1 x10e3/ uL 0.0-0.4 code = 711-2) Basophils [#/volume] in Blood by Automated count (test 0.1 x10e3/uL 0.0-0.2 code = 704-7) Immature granulocytes/100 leukocytes in Blood by 0 % not e stab. Automated count (test code = 25383-9) Immature granulocytes [#/volume] in Blood by Automated 0.0 x10e3/uL 0.0-0.1 count (test code = 09445-2) Nucleated erythrocytes/100 leukocytes [Ratio] in Blood quality improvement consultant by Automated count (test code = 92889-0) Morphology [Interpretation] in Blood Narrative (test quality improvement consultant code = 94496-5) [facility] - Serum or Plasma 2021-08-06 00:00:00 Test Item Value Reference Range Interpretation Comments Protein [Mass/volume] in Serum or 7.0 g/dL 6.0-8.5 Plasma (test code = 2885-2) Albumin [Mass/volume] in Serum or 4.5 g/dL 4.0-5.0 Plasma (test code = 1751-7) Bilirubin.total [Mass/volume] in 0.5 mg/dL 0.0-1.2 Serum or Plasma (test code = 1975-2) Bilirubin.direct [Mass/volume] in 0.14 mg/dL 0.00-0.40 Serum or Plasma (test code = 1968-7) Alkaline phosphatase [Enzymatic 77 IU/L 44-121 activity/volume] in Serum or Plasma (test code = 6768-6) Aspartate aminotransferase 44 IU/L 0-40 H [Enzymatic activity/volume] in Serum or Plasma (test code = 1920-8) Alanine aminotransferase 85 IU/L 0-44 H [Enzymatic activity/volume] in Serum or Plasma (test code = 1742-6) [facility], [id number] 00:00:00 Test Item Value Reference Range Interpretation Comments Cholesterol [Mass/volume] in Serum 187 mg/dL 100-199 or Plasma (test code = 2093-3) Triglyceride [Mass/volume] in Serum 172 mg/dL 0-149 H or Plasma (test code = 2571-8) Cholesterol in HDL [Mass/volume] in 38 mg/dL >39 L Serum or Plasma (test code = 2085-9) Cholesterol in VLDL [Mass/volume] 31 mg/dL 5-40 in Serum or Plasma by calculation (test code = 11102-2) Cholesterol in LDL [Mass/volume] in 118 mg/dL 0-99 H Serum or Plasma by calculation (test code = 88979-0) Laboratory comment [Text] in Report quality improvement consultant Narrative (test code = 11161-3) [facility] W Auto Differential panel - [id number] 00:00:00 Test Item Value Reference Range Interpretation Comments Leukocytes [#/volume] in Blood 6.2 x10e3/uL 3.4-10.8 by Automated count (test code = 6690-2) Erythrocytes [#/volume] in 5.17 x10e6/uL 4.14-5.80 Blood by Automated count (test code = 789-8) Hemoglobin [Mass/volume] in 15.3 g/dL 13.0-17.7 Blood (test code = 718-7) Hematocrit [Volume Fraction] of 46.1 % 37.5-51.0 Blood by Automated count (test code = 4544-3) Erythrocyte mean corpuscular 89 fL 79-97 volume [Entitic volume] by Automated count (test code = 787-2) Erythrocyte mean corpuscular 29.6 pg 26.6-33.0 hemoglobin [Entitic mass] by Automated count (test code = 785-6) Erythrocyte mean corpuscular 33.2 g/dL 31.5-35.7 hemoglobin concentration [Mass/volume] by Automated count (test code = 786-4) Erythrocyte distribution width 12.5 % 11.6-15.4 [Ratio] by Automated count (test code = 788-0) Platelets [#/volume] in Blood 163 x10e3/uL 150-450 by Automated count (test code = 777-3) Neutrophils/100 leukocytes in 61 % not estab. Blood by Automated count (test code = 770-8) Lymphocytes/100 leukocytes in 24 % not estab. Blood by Automated count (test code = 736-9) Monocytes/100 leukocytes in 12 % not estab. Blood by Automated count (test code = 5905-5) Eosinophils/100 leukocytes in 2 % not estab. Blood by Automated count (test code = 713-8) Basophils/100 leukocytes in 1 % not estab. Blood by Automated count (test code = 706-2) immature cells (test code = quality improvement consultant immature cells) Neutrophils [#/volume] in Blood 3.8 x10e3/uL 1.4-7.0 by Automated count (test code = 751-8) Lymphocytes [#/volume] in Blood 1.5 x10e3/uL 0.7-3.1 by Automated count (test code = 731-0) Monocytes [#/volume] in Blood 0.8 x10e3/uL 0.1-0.9 by Automated count (test code = 742-7) Eosinophils [#/volume] in Blood 0.1 x10e3/uL 0.0-0.4 by Automated count (test code = 711-2) Basophils [#/volume] in Blood 0.1 x10e3/uL 0.0-0.2 by Automated count (test code = 704-7) Immature granulocytes/100 0 % not estab. leukocytes in Blood by Automated count (test code = 90141-8) Immature granulocytes 0.0 x10e3/uL 0.0-0.1 [#/volume] in Blood by Automated count (test code = 97052-3) Nucleated erythrocytes/100 quality improvement consultant leukocytes [Ratio] in Blood by Automated count (test code = 78563-2) Morphology [Interpretation] in quality improvement consultant Blood Narrative (test code = 00294-2) [facility] 2000 panel - Serum or [id number] 00:00:00 Test Item Value Reference Range Interpretation Comments Glucose [Mass/volume] in 118 mg/dL 65-99 H Serum or Plasma (test code = 2345-7) Urea nitrogen [Mass/volume] 16 mg/dL 6-20 in Serum or Plasma (test code = 3094-0) Creatinine [Mass/volume] in 0.91 mg/dL 0.76-1.27 Serum or Plasma (test code = 2160-0) Glomerular filtration 109 mL/min/1.73 >59 rate/1.73 sq M.predicted among non-blacks [Volume Rate/Area] in Serum, Plasma or Blood by Creatinine-based formula (CKD-EPI) (test code = 68698-5) Glomerular filtration 126 mL/min/1.73 >59 rate/1.73 sq M.predicted among blacks [Volume Rate/Area] in Serum, Plasma or Blood by Creatinine-based formula (CKD-EPI) (test code = 20647-4) Urea nitrogen/Creatinine 18 9-20 [Mass Ratio] in Serum or Plasma (test code = 3097-3) Sodium [Moles/volume] in 136 mmol/L 134-144 Serum or Plasma (test code = 2951-2) Potassium [Moles/volume] in 4.8 mmol/L 3.5-5.2 Serum or Plasma (test code = 2823-3) Chloride [Moles/volume] in 102 mmol/L 96-106 Serum or Plasma (test code = 2075-0) Carbon dioxide, total 21 mmol/L 20-29 [Moles/volume] in Serum or Plasma (test code = 2027-9) Calcium [Mass/volume] in 9.6 mg/dL 8.7-10.2 Serum or Plasma (test code = 53540-3) Protein [Mass/volume] in 7.3 g/dL 6.0-8.5 Serum or Plasma (test code = 2885-2) Albumin [Mass/volume] in 4.4 g/dL 4.0-5.0 Serum or Plasma (test code = 1751-7) Globulin [Mass/volume] in 2.9 g/dL 1.5-4.5 Serum by calculation (test code = 43233-9) Albumin/Globulin [Mass Ratio] 1.5 1.2-2.2 in Serum or Plasma (test code = 1759-0) Bilirubin.total [Mass/volume] 0.3 mg/dL 0.0-1.2 in Serum or Plasma (test code = 1974-) Alkaline phosphatase 79 IU/L 44-121 [Enzymatic activity/volume] in Serum or Plasma (test code = 6768-6) Aspartate aminotransferase 32 IU/L 0-40 [Enzymatic activity/volume] in Serum or Plasma (test code = 1920-8) Alanine aminotransferase 61 IU/L 0-44 H [Enzymatic activity/volume] in Serum or Plasma (test code = 174-6) [facility]ics[facility] W Reflex Culture panel - [id number] 00:00:00 Test Item Value Reference Range Interpretation Comments Specific gravity of Urine (test 1.022 1.005-1.030 code = 2965-2) pH of Urine by Test strip (test 6.5 5.0-7.5 code = 5803-2) Color of Urine (test code = yellow yellow 5778-6) Appearance of Urine (test code = clear clear 5767-9) Leukocyte esterase [Presence] in negative negative Urine by Test strip (test code = 5799-2) Protein [Presence] in Urine by negative negative/trace Test strip (test code = 65368-4) Glucose [Presence] in Urine (test trace negative A code = 2349-9) Ketones [Presence] in Urine by negative negative Test strip (test code = 2514-8) Hemoglobin [Presence] in Urine by negative negative Test strip (test code = 5794-3) Bilirubin.total [Presence] in negative negative Urine by Test strip (test code = 5770-3) Urobilinogen [Mass/volume] in 0.2 mg/dL 0.2-1.0 Urine by Test strip (test code = 34698-7) Nitrite [Presence] in Urine by negative negative Test strip (test code = 5802-4) Microscopic observation see below: [Identifier] in Urine sediment by Light microscopy (test code = 30720-5) Leukocytes [#/area] in Urine none seen 0-5 sediment by Microscopy high power field (test code = 5821-4) Erythrocytes [#/area] in Urine none seen 0-2 sediment by Microscopy high power field (test code = 71720-1) Epithelial cells [#/area] in Urine none seen 0-10 sediment by Microscopy high power field (test code = 5787-7) Epithelial cells.renal [#/area] in quality improvement consultant Urine sediment by Microscopy high power field (test code = 80289-1) Casts [Presence] in Urine sediment none seen none seen by Light microscopy (test code = 77419-4) Casts [Type] in Urine sediment by quality improvement consultant Light microscopy (test code = 86852-7) Unidentified crystals [Presence] quality improvement consultant in Urine sediment by Light microscopy (test code = 5783-6) Crystals [type] in Urine sediment quality improvement consultant by Light microscopy (test code = 5782-8) Mucus [Presence] in Urine sediment quality improvement consultant by Light microscopy (test code = 8247-9) Bacteria [#/area] in Urine none seen none seen/few sediment by Microscopy high power field (test code = 5769-5) Yeast [#/area] in Urine sediment quality improvement consultant by Microscopy high power field (test code = 5822-2) Trichomonas vaginalis [Presence] quality improvement consultant in Urine sediment by Light microscopy (test code = 5813-1) Urine sediment comments by Light quality improvement consultant microscopy Narrative (test code = 63156-8) urinalysis reflex (test code = comment urinalysis reflex) [facility] - Serum or [id number] 00:00:00 Test Item Value Reference Range Interpretation Comments Cholesterol [Mass/volume] in Serum 309 mg/dL 100-199 H or Plasma (test code = 2093-3) Triglyceride [Mass/volume] in Serum 611 mg/dL 0-149 H or Plasma (test code = 2571-8) Cholesterol in HDL [Mass/volume] in 33 mg/dL >39 L Serum or Plasma (test code = 2085-9) Cholesterol in VLDL [Mass/volume] 120 mg/dL 5-40 H in Serum or Plasma by calculation (test code = 69870-7) Cholesterol in LDL [Mass/volume] in 156 mg/dL 0-99 H Serum or Plasma by calculation (test code = 12800-7) Laboratory comment [Text] in Report quality improvement consultant Narrative (test code = 40159-8) [facility] 2000 panel - [id number] 00:00:00 Test Item Value Reference Range Interpretation Comments Hepatitis A virus IgM Ab [Presence] negative negative in Serum or Plasma by Immunoassay (test code = 06076-2) Hepatitis B virus surface Ag negative negative [Presence] in Serum or Plasma by Immunoassay (test code = 5196-1) Hepatitis B virus core IgM Ab negative negative [Presence] in Serum or Plasma by Immunoassay (test code = 07986-7) Hepatitis C virus Ab Signal/Cutoff <0.1 0.0-0.9 in Serum or Plasma by Immunoassay (test code = 85970-8) [facility] and triacylglycerol lipase panel - Serum or [id number] 00:00:00 Test Item Value Reference Range Interpretation Comments Amylase [Enzymatic activity/volume] in 43 U/L 31-110 Serum or Plasma (test code = 1798-8) Lipase [Enzymatic activity/volume] in 21 U/L 13-78 Serum or Plasma (test code = 3040-3) [facility] A1c/Hemoglobin.total in Blood 2021-07-08 00:00:00 Test Item Value Reference Range Interpretation Comments Hemoglobin A1c/Hemoglobin.total in 6.4 % 4.8-5.6 H Blood (test code = 4548-4) Glucose mean value [Mass/volume] in 137 mg/dL Blood Estimated from glycated hemoglobin (test code = 78604-9) [facility], [id number] 00:00:00 Test Item Value Reference Range Interpretation Comments Thyrotropin [Units/volume] in 1.350 uIU/mL 0.450-4.500 Serum or Plasma by Detection limit <= 0.005 mIU/L (test code = 59093-5) Thyroxine (T4) [Mass/volume] in 4.6 ug/dL 4.5-12.0 Serum or Plasma (test code = 3026-2) [facility] [Mass/volume] in Serum or Plasma 2021-07-08 00:00:00 Test Item Value Reference Range Interpretation Comments Urate [Mass/volume] in Serum or 7.9 mg/dL 3.8-8.4 Plasma (test code = 3084-1) [facility]
[2022-06-07 18:52] LABS: Absolute Lymphocytes (CBC) 1.8 K/uL (0.7-4.9); Hematocrit 44.9 % (39.6-49.0); Lymphocytes % 22.9 % (15.3-44.8); MCV 89.9 fL (80-100); MPV 9.8 fL (7.6-11.3); RBC Red Blood Cell Count 4.99 M/uL (4.33-5.43)
[2022-06-07 19:06] LABS: Potassium 4.1 mmol/L (3.5-5.1); Troponin High Sensitivity 5.1 pg/mL (<58.9)
--- NOTE | 2022-06-07 20:16 | RAD REPORT ---
EXAM DESCRIPTION: RAD - Chest Single View - 06/07/2022 7:59 pm CLINICAL HISTORY: CHEST PAIN COMPARISON: Two view chest 02/24/2021 TECHNIQUE: AP portable chest image was obtained 06/07/2022 7:59 pm . FINDINGS: Lung volumes are low. No focal lung parenchymal process. Cardiac silhouette is enlarged, e xaggerated in part due to portable technique and shallow inspiration. No failure or volume overload v ascular or lung findings. No measurable pleural effusion and no pneumothorax. No acute bony abnormali ty seen. No acute aortic findings suspected. IMPRESSION: No acute lung parenchymal process. Mild cardiomegaly exaggerated by shallow inspiration. No acute failure or volume overload.
--- NOTE | 2022-06-07 21:23 | EDPHYS ---
Physician Documentation [facility] Name: Joe Duncan Age: 37 yrs Sex: Male : 1985 Arrival Date: 06/07/2022 Time: 18:13 Bed DIS3 Private MD: ED Physician Darren Hutchins HPI: 06/07 20:03 This 37 yrs old Male presents to ER via Ambulatory with complaints of Chest Pain. kb 20:04 The patient or guardian reports chest pain that is located primarily in the anterior kb chest wall, left. The pain does not radiate. Associated signs and symptoms: The patient has no apparent associated signs or symptoms. The chest pain is described as squeezing. Duration: The patient or guardian reports multiple episodes, that are intermittent, with no pattern. Modifying factors: The symptoms are alleviated by nothing. the symptoms are aggravated by nothing. Severity of pain: At its worst the pain was moderate in the emergency department the pain has resolved. The patient has experienced similar episodes in the past, a few times. The patient has not recently seen a physician. 20:05 Pt reports left chest pain that started earlier today, lasted a few minutes then went kb away. States a few hours went by and it came on again lasting for 20 minutes. Last episode was just coo. States the pain is a squeezing pain. Historical: - Allergies: 18:24 No Known Allergies; ld1 - PMHx: 18:24 Hypercholesterolemia; Hypertension; Kidney stones; ld1 - PSHx: 18:24 Left arm sx; ld1 - Immunization history:: Adult Immunizations up to date, Client reports receiving the 2nd dose of the Covid vaccine. - Social history:: Smoking status: Patient denies any tobacco usage or history of. Patient/guardian denies using alcohol. ROS: 20:03 Constitutional: Negative for fever, chills, and weight loss. kb 20:03 Cardiovascular: Positive for chest pain, Negative for edema, orthopnea, palpitations, paroxysmal nocturnal dyspnea. 20:03 All other systems are negative. Exam: 20:03 Constitutional: This is a well developed, well nourished patient who is awake, alert, kb and in no acute distress. Head/Face: Normocephalic, atraumatic. ENT: Moist Mucous membranes Chest/axilla: Normal chest wall appearance and motion. Cardiovascular: Regular rate and rhythm with a normal S1 and S2. No gallops, murmurs, or rubs. No pulse deficits. Respiratory: Respirations even and unlabored. No increased work of breathing. Talking in full sentences Abdomen/GI: Soft, non-tender. No distention Skin: Warm, dry with normal turgor. Normal color. MS/ Extremity: Pulses equal, no cyanosis. Neurovascular intact. Full, normal range of motion. Neuro: Awake and alert, GCS 15, oriented to person, place, time, and situation. Moves all extremities. Normal gait. Psych: Awake, alert, with orientation to person, place and time. Behavior, mood, and affect are within normal limits. Vital Signs: 18:23 BP 130 / 83; Pulse 67; Resp 18; Temp 97.6(TE); Pulse Ox 99% on R/A; Weight 115.67 kg; ld1 Height 5 ft. 9 in. (175.26 cm); Pain 10/10; 21:13 BP 118 / 69; Pulse 65; Resp 16; Pulse Ox 99% on R/A; Pain 1/10; hb 18:23 Body Mass Index 37.66 (115.67 kg, 175.26 cm) ld1 MDM: 18:23 Patient medically screened. kb 20:03 Data reviewed: vital signs, nurses notes. Data interpreted: Pulse oximetry: on room air kb is 99 %. Interpretation: normal. ED course: HEART score 1. 21:22 Counseling: I had a detailed discussion with the patient and/or guardian regarding: the kb historical points, exam findings, and any diagnostic results supporting the discharge/admit diagnosis, lab results, radiology results, the need for outpatient follow up, a breast trimmer, to return to the emergency department if symptoms worsen or persist or if there are any questions or concerns that arise at home. 06/07 18:19 Order name: Basic Metabolic Panel; Complete Time: 19:11 ld1 06/07 18:19 Order name: CBC with Diff; Complete Time: 18:56 ld1 06/07 18:19 Order name: Troponin HS; Complete Time: 19:11 ld1 06/07 18:19 Order name: XRAY Chest (1 view); Complete Time: 20:21 ld1 06/07 18:19 Order name: EKG; Complete Time: 18:20 ld1 06/07 20:21 Order name: Troponin High Sensitivity; Complete Time: 21:22 kb 06/07 18:19 Order name: EKG - Nurse/Tech; Complete Time: 18:21 ld1 06/07 18:19 Order name: IV Saline Lock; Complete Time: 18:41 ld1 06/07 18:19 Order name: Labs collected and sent; Complete Time: 18:41 ld1 06/07 18:19 Order name: O2 Per Protocol; Complete Time: 18:21 ld1 06/07 18:19 Order name: O2 Sat Monitoring; Complete Time: 18:21 ld1 Administered Medications: No medications were administered Disposition Summary: 06/07/22 21:23 Discharge Ordered Location: Home kb Condition: Stable kb Diagnosis - Chest pain, unspecified kb Followup: kb - With: Emergency Department - When: As needed - Reason: Worsening of condition Followup: kb - With: Private Physician - When: 2 - 3 days - Reason: Recheck today's complaints, Continuance of care, Re-evaluation by your physician Discharge Instructions: - Discharge Summary Sheet kb - Nonspecific Chest Pain, Adult, [id number] kb Forms: - Medication Reconciliation Form kb - Thank You Letter kb - Antibiotic Education kb - Prescription Opioid Use kb Signatures: Dispatcher [employer] EDMS Radha Millan, RADIO EQUIPMENT INSTALLER-C RADIO EQUIPMENT INSTALLER-Radha Green, RN RN ld1 Corrections: (The following items were deleted from the chart) 20:06 20:05 Pt reports left chest pain that started earlier today, lasted a few minutes then kb went away. States a few hours went by and it came on again lasting for 20 minutes. Last episode was just coo. kb
--- NOTE | 2022-06-07 21:23 | ER ---
Nurse's Notes [facility] Name: Joe Duncan Age: 37 yrs Sex: Male : 1985 Arrival Date: 06/07/2022 Time: 18:13 Bed DIS3 Private MD: Diagnosis: Chest pain, unspecified Presentation: 06/07 18:23 Chief complaint: Patient states: Chest pain began today around 2pm - Intermittent pain. ld1 Pain came back 30 minutes ago - made left arm feel cold and tingly. Coronavirus screen: At this time, the client does not indicate any symptoms associated with coronavirus-19. Ebola Screen: No symptoms or risks identified at this time. Initial Sepsis Screen: Does the patient meet any 2 criteria? No. Patient's initial sepsis screen is negative. Does the patient have a suspected source of infection? No. Patient's initial sepsis screen is negative. Risk Assessment: Do you want to hurt yourself or someone else? Patient reports no desire to harm self or others. Onset of symptoms was June 07, 2022. 18:23 Method Of Arrival: Ambulatory ld1 18:23 Acuity: PRADIP 3 ld1 Triage Assessment: 18:24 General: Appears in no apparent distress. comfortable, Behavior is calm, cooperative, ld1 appropriate for age. Pain: Complains of pain in chest Pain radiates to left arm Pain currently is 3 out of 10 on a pain scale. at worst was 10 out of 10 on a pain scale. Quality of pain is described as pressure, radiating, throbbing. EENT: No signs and/or symptoms were reported regarding the EENT system. Neuro: Level of Consciousness is awake, alert, obeys commands, Oriented to person, place, time, situation. Cardiovascular: Capillary refill < 3 seconds Patient's skin is warm and dry. Rhythm is sinus rhythm. Respiratory: Airway is patent Respiratory effort is even, unlabored. GI: Abdomen is round non-distended. : No signs and/or symptoms were reported regarding the genitourinary system. Derm: No signs and/or symptoms reported regarding the dermatologic system. Musculoskeletal: No signs and/or symptoms reported regarding the musculoskeletal system. Historical: - Allergies: 18:24 No Known Allergies; ld1 - PMHx: 18:24 Hypercholesterolemia; Hypertension; Kidney stones; ld1 - PSHx: 18:24 Left arm sx; ld1 - Immunization history:: Adult Immunizations up to date, Client reports receiving the 2nd dose of the Covid vaccine. - Social history:: Smoking status: Patient denies any tobacco usage or history of. Patient/guardian denies using alcohol. Screenin:14 Abuse screen: Denies threats or abuse. Denies injuries from another. Nutritional hb screening: No deficits noted. Tuberculosis screening: No symptoms or risk factors identified. Fall Risk None identified. Assessment: 21:13 Reassessment: Patient appears in no apparent distress at this time. Patient and/or hb family updated on plan of care and expected duration. Pain level reassessed. Patient is alert, oriented x 3, equal unlabored respirations, skin warm/dry/pink. Vital Signs: 18:23 BP 130 / 83; Pulse 67; Resp 18; Temp 97.6(TE); Pulse Ox 99% on R/A; Weight 115.67 kg; ld1 Height 5 ft. 9 in. (175.26 cm); Pain 10/10; 21:13 BP 118 / 69; Pulse 65; Resp 16; Pulse Ox 99% on R/A; Pain 1/10; hb 18:23 Body Mass Index 37.66 (115.67 kg, 175.26 cm) ld1 ED Course: 18:13 Patient arrived in ED. rg4 18:22 Radha Millan FNP-C [facility]. kb 18:22 Darren Hutchins MD is Attending Physician. kb 18:24 Triage completed. ld1 18:24 Arm band placed on right wrist. ld1 18:41 Initial lab(s) drawn, by nv, sent to lab. Inserted saline lock: 22 gauge in right iw antecubital area, using aseptic technique. Blood collected. Patient maintains SpO2 saturation greater than 95% on room air. 20:01 XRAY Chest (1 view) In Process Unspecified. EDMS 21:14 Patient has correct armband on for positive identification. hb 21:44 Tiana Leal, JESSICA is Primary Nurse. vc1 21:44 No provider procedures requiring assistance completed. IV discontinued, intact, vc1 bleeding controlled, No redness/swelling at site. Pressure dressing applied. Administered Medications: No medications were administered Medication: 21:45 VIS not applicable for this client. vc1 Outcome: 21:23 Discharge ordered by . kb 21:45 Discharged to home ambulatory, with significant other. vc1 21:45 Condition: good 21:45 Discharge instructions given to patient, significant other, Instructed on discharge instructions, follow up and referral plans. Demonstrated understanding of instructions, follow-up care. 21:45 Patient left the ED. vc1 Signatures: Dispatcher [employer] EDMS Radha Millan, EQUIPMENT SERVICES ASSOCIATE-C EQUIPMENT SERVICES ASSOCIATE-Shanika Webber RN RN Sarah Patel RN RN Renae Wharton rg4 Radha Son RN RN ld1 Tiana Leal RN RN vc1
[2022-06-07] MEDS ORDERED: LIDOCAINE 1% MPF 30 ML VIAL ONE (22:29)
[2022-06-07 22:57] VITALS: TEMP 97.6; O2SAT 99
[2022-06-07 22:58] VITALS: BP 118/69
--- NOTE | 2022-06-08 13:45 | EKG ---
Test Date: 2022-06-07 Test Time: 18:20:27 Sand Cutting Machine Operator: LINDA MEASUREMENT RESULTS: Intervals: Rate: 68 CA: 164 QRSD: 86 QT: 388 QTc: 412 [place]: P: 50 CA: 164 QRS: 32 T: -1 INTERPRETIVE STATEMENTS: Normal sinus rhythm Normal ECG Compared to ECG 12/29/2017 11:51:43 Left ventricular hypertrophy no longer present Electronically Signed On 06-08-22 13:44:04 DRUG ROOM CLERK by Nicho Mcintyre
== END 2022-06-07 21:45 | disposition home or self-care (01) ==
LOC: ER 18:11
DX: R07.89 Other chest pain (principal); I10 Essential (primary) hypertension
CPT/HCPCS: 93005; 85025; 80048; 36415; 84484 ×2; 71045; 99284; J2001